=== PATIENT | female | born 1940 | race Caucasian/White ===

== ENCOUNTER 2023-10-27 22:12 | Inpatient (IN) | payer OTHER, SELFPAY ==
[2023-10-27 18:24] VITALS: BP 156/89
--- NOTE | 2023-10-27 18:49 | ED.GENMED ---
History of Present Illness
<Hernando Álvarez DO - Last Filed: 10/27/23 18:51>
General
Chief Complaint: Breathing Problem
Time Seen by Provider: 10/27/23 18:50
Travel History
Have you had any contact with someone who has COVID-19?: No
Do you have any symptoms of coronavirus? Fever > 100 degrees, chills, cough, shortness of breath, sore throat, loss of taste or smell, muscle aches, or headache?: No
<LUIS Donato - Last Filed: 10/27/23 20:51>
General
Source: patient
Exam Limitations: none
History of Present Illness
History of Present Illness:
This is a 82 year old female that comes in with c/o SOB. Son states that before his dad passed he told him that his mom needed to see a doctor as she was SOB. States that at that time it was not really noticeable. States that she has some pelvic
surgery due to fracture and she has been seeing a urologist. State that she was to see them on Sunday but they cancelled her appointment. States that prior to this she had a US and labs. State that the office called them yesterday and said that is
shows some kidney disease and that she had a pleural effusion. States that since he was with her all day yesterday he noticed that she was SOB with walking. Patient states that she does feels SOB. Son states that they have a pulse ox at home and her
HR has been going up and down. States that the highest ws 140 but usually between 100-120. States that her pulse ox was around 96. Denies any fever, chills, chest pain, abd pain, nausea, vomiting, diarrhea, headache, dizziness, urinary burning.
Denies any history of Atrial fib.
Past History
<LUIS Donato - Last Filed: 10/27/23 20:51>
Past History
ED Past Medical History: Cancer (Breast CA) and HTN; Negative Asthma, Hypercholesterolemia or NIDDM
ED Past Surgical History: Gynecological (Lympectomy) and Orthopedic (Pelvic surgery due to fractures)
Social History
Tobacco: Non-smoker
Alcohol: Occasional
Personal:
Living: alone
Review of Systems
<LUIS Donato - Last Filed: 10/27/23 20:51>
Review of Systems
All Other Systems: ROS reviewed and negative except as documented in HPI and ROS
Constitutional: Reports no symptoms; Denies fever or chills
EENT: Reports no symptoms
Respiratory: Reports trouble breathing; Denies cough
ABD/GI: Reports no symptoms; Denies abdominal pain, nausea, vomiting or diarrhea
: Reports no symptoms; Denies dysuria, frequency or urgency
Musculoskeletal: Reports no symptoms
Skin: Reports no symptoms
Neurological: Reports no symptoms; Denies dizzy or headache
Psychiatric: Reports no symptoms
Phy Exam
<LUIS Donato - Last Filed: 10/27/23 20:51>
General Physical Exam
General Presentation: no apparent distress
General age: appears stated age
General Skin: warm and dry
General Habitus: elderly
General Mental: alert
General Hydration: appears well hydrated
ENT Exam
ENT Exam: TM's normal, pharynx normal and neck supple
Eye Exam
Eye Exam: EOMI
Cardiovascular Exam
Cardiovascular Exam: normal peripheral pulses and irregularly irregular
Pulmonary Exam
Pulmonary Exam: no respiratory distress, no rales, chest non tender, no crackles, no rhonchi, no wheezing, no cough and other (Slight Decreased breath sound right base)
Gastrointestinal Exam
Gastrointestinal Exam: normal bowel sounds, non tender, soft, no organomegaly, no pulsatile mass and non distended
Musculoskeletal Exam
Musculoskeletal Exam: full ROM and edema (Bilateral lower legs to knees +1 pitting)
Skin Exam
Skin Exam: normal color, warm/dry, no rash and no petechia
Psychiatric Exam
Psychiatric Exam: normal mood/affect
Scores
<LUIS Donato - Last Filed: 10/27/23 20:51>
[id number] Score for Afib Stroke Risk
Age in Years (65=0, 65-74=1, >/=75=2): > or = 75
Sex (Female=+1): Female
Congestive Heart Failure History (Yes=+1): Yes
Hypertension History (Yes=+1): Yes
Stroke/TIA/Thromboembolism History (Yes=+2): No
Vascular Disease History (Yes=+1): No
Diabetes Mellitus (Yes=+1): No
Score: 5
Anticoagulation Recommendations: Recommend anticoagulation (as validated in nonvalvular fib)
Heart Failure Risk
Heart Failure Risk Score: Yes
History of Stroke or TIA: No
History of intubation for respiratory distress: No
Heart rate on ED arrival >/= 110: Yes
SaO2 <90% on arrival on room air: No
HR >/=110 during 3min walk test (or too ill to perform test): Yes
ECG has acute ischemic changes: No
Urea >/=12mmol/L (BUN 33.6mg/dL): No
Serum CO2>/=35mmol/L: No
Troponin I or T elevated to CO Level (0.4mg/dL): No
NT-proBNP >/=5,000ng/L (5,000pg/ml): No
HF Risk Score: 2
Admission Status: MEDIUM RISK 9.2% Consider observation or discharge to home with homecare & f/u visit to PCP/Food Technician, or SNF for treatment
Course
<Hernando Álvarez DO - Last Filed: 10/27/23 18:51>
Orders/Labs/Results
Orders:
Orders
10/27/23 18:27
ECG [Electrocardiogram (*1)] Urgent
Reason for Study: Tachycardia
EKG- Treatment ONCE
10/27/23 18:49
CR Chest - 2 Views Urgent
Comment:
Reason For Exam: dyspnea
10/27/23 18:50
Urinalysis Reflex To Culture Urgent
Date Specimen was Collected: 10/27/23
Time Specimen was Collected: 18:52
10/27/23 19:19
Complete Blood Count/With Diff Urgent
Comprehensive Metabolic Panel Urgent
Lipase Urgent
NT-proBNP Urgent
PTT Urgent
Prothrombin Time Urgent
Troponin I Urgent
Abnormal Lab Results
10/27/23
19:19
RBC 3.44 L 10^6/uL
(4.20-5.40)
Hgb 11.5 L g/dL
(12.0-16.0)
Hct 32.5 L %
(37.0-47.0)
MCH 33.4 H pg
(27.0-31.0)
Absolute Monos (auto) 0.7 H 10^3/uL
(0.1-0.6)
Monocytes % 13.3 H %
(1.7-9.3)
PT 15.3 H Sec
(11.4-14.6)
Sodium 133 L mmol/L
(135-145)
BUN 24 H mg/dl
(7-17)
Glucose 105 H mg/dl
(70-99)
10/27/23 19:19
10/27/23 19:19
Vital Signs
Initial and Last Documented VS:
Initial Vital Signs
Temp Pulse Resp BP Pulse Ox
98.1 F 116 20 156/89 96
10/27/23 18:24 10/27/23 18:24 10/27/23 18:24 10/27/23 18:24 10/27/23 18:24
Last Documented Vital Signs
Temp Pulse Resp BP Pulse Ox
98.1 F 110 25 156/89 95
10/27/23 18:24 10/27/23 20:17 10/27/23 20:17 10/27/23 18:24 10/27/23 20:17
<LUIS Donato - Last Filed: 10/27/23 20:51>
Orders/Labs/Results
Orders:
Orders
10/27/23 18:27
ECG [Electrocardiogram (*1)] Urgent
Reason for Study: Tachycardia
EKG- Treatment ONCE
10/27/23 18:49
CR Chest - 2 Views Urgent
Comment:
Reason For Exam: dyspnea
10/27/23 18:50
Urinalysis Reflex To Culture Urgent
Date Specimen was Collected: 10/27/23
Time Specimen was Collected: 18:52
10/27/23 19:19
Complete Blood Count/With Diff Urgent
Comprehensive Metabolic Panel Urgent
Lipase Urgent
NT-proBNP Urgent
PTT Urgent
Prothrombin Time Urgent
Troponin I Urgent
Abnormal Lab Results
10/27/23
19:19
RBC 3.44 L 10^6/uL
(4.20-5.40)
Hgb 11.5 L g/dL
(12.0-16.0)
Hct 32.5 L %
(37.0-47.0)
MCH 33.4 H pg
(27.0-31.0)
Absolute Monos (auto) 0.7 H 10^3/uL
(0.1-0.6)
Monocytes % 13.3 H %
(1.7-9.3)
PT 15.3 H Sec
(11.4-14.6)
Sodium 133 L mmol/L
(135-145)
BUN 24 H mg/dl
(7-17)
Glucose 105 H mg/dl
(70-99)
10/27/23 19:19
10/27/23 19:19
H/H slightly low. PT 15.3 with INR 1.23, PTT 29.6, Lipase normal at 165, Sodium slightly low, Glucose nonfasting. Troponin <0.012, Pro-BNP 4560.
Vital Signs
Initial and Last Documented VS:
Initial Vital Signs
Temp Pulse Resp BP Pulse Ox
98.1 F 116 20 156/89 96
10/27/23 18:24 10/27/23 18:24 10/27/23 18:24 10/27/23 18:24 10/27/23 18:24
Last Documented Vital Signs
Temp Pulse Resp BP Pulse Ox
98.1 F 110 25 156/89 95
10/27/23 18:24 10/27/23 20:17 10/27/23 20:17 10/27/23 18:24 10/27/23 20:17
<LUIS Donato - Last Filed: 10/27/23 20:51>
MDM/Problems Addressed
Differential Diagnosis Includes:
New Onset atrial fib, CHF, Pleural effusion
MDM/Problems Addressed:
This is a 82 year old female that comes in with c/o SOB. Son states that this must have started a month ago but was not noticeable. Then patient has testing yesterday and they were called and told that she has some renal disease and a pleural
effusion. States that she has been SOB and her heart rate is going up and down. The highest it has been was 140. Normally it has been between 100-120. Denies any history of atrial fib.
Will get labs, chest X-ray.
Back into see patient and son. Explained that there is a right sided pleural effusion and increased vascular congestion. With this new history of atrial fib it has most likely cause the CHF. Will start on Eliquis and give IV Lasix and admit.
Hospitalist notified.
Chronic conditions affecting care: Cancer
Acute Exacerbation and/or Progression of Chronic Illness:
NA
<LUIS Dnoato - Last Filed: 10/27/23 20:51>
*Radiology
Radiology exam reviewed: preliminary read by ED provider (Chest- Right sided pleural effusion with CHF. )
*Pulse Oximetry
Patient hypoxic: no
*EKG
Interpreted by ED Provider?: Yes
Heart Rate: 96
Rate: normal
Rhythm: a-fib
Trinity: normal axis
QRS Pattern: normal QRS
Ischemia: non-specific ST changes (V4, V5, V6 Checked by Dr. Torres)
*Director Pharmacology Interpretation
Rate: tachycardiac
Heart Rate: 107
Rhythm: a-fib
*Critical Care Note
Total Time (30-74mins, 75-104mins- exclusive of procedures): Not Applicable
ED Attending Note
<Hernando Álvarez DO - Last Filed: 10/27/23 18:51>
-
Portions of this chart may have been created with voice recognition software.� Occasional wrong word or��sound alike� substitutions may have occurred due to the inherent limitations of voice recognition software.
Discharge Plan
Departure
Patient Disposition: Admit
Date of Disposition: 10/27/23
Time of Disposition: 20:48
Admit to: Telemetry
Presentation/result/management discussed w/ accepting MD/DO: Hospitalist
Patient with high blood pressure during this ER visit?: Yes
Condition: Good
Covid-19: Not Applicable
Discharge Problem:
Atrial fibrillation, new onset, Pleural effusion, right, CHF (congestive heart failure)
Referrals:
Jcarlos Velez MD [Family Provider] -
Interventions
Interventions:
*ED COVID-19 Vaccine History Last Done: 10/27/23 18:24
ED- Cardiac Assessment Last Done: 10/27/23 19:24
ED- Pulmonary Assessment Last Done: 10/27/23 19:24
Discharge Date and Time
Print Language: SLOVAK
[2023-10-27 19:44] LABS: % Basophils 0.6 % (0-2); % Eosinophils 4.6 % (0-6); % Immature Granulocytes 0.4 % (0-0.5); % Lymphocytes 23.2 % (20.5-51.1); % Monocytes 13.3 % (1.7-9.3); % Neutrophils 57.9 % (42.2-75.2); Absolute Eosinophils 0.2 10^3/uL (0-0.7); Absolute Lymphocytes 1.2 10^3/uL (1.2-3.4); Absolute Monocytes 0.7 10^3/uL (0.1-0.6); Absolute Neutrophils 2.9 10^3/uL (1.4-6.5); Hematocrit 32.5 % (37.0-47.0); Hemoglobin 11.5 g/dL (12.0-16.0); Mean Corp Hgb Conc. 35.4 g/dL (33.0-37.0); Mean Corpuscular Hgb 33.4 pg (27.0-31.0); Mean Corpuscular Volume 94.5 fL (81.0-99.0); Nucleated Red Blood Cells % 0 %; Platelet Count 242 10^3/uL (130-400); Red Blood Cell Count 3.44 10^6/uL (4.20-5.40); Red Cell Dist. Width 13.6 % (11.5-14.5)
[2023-10-27 19:55] LABS: ALT (SGPT) 30 U/L (0-35); AST (SGOT) 30 U/L (14-36); Albumin 3.7 g/dl (3.5-5.0); Alkaline Phosphatase 99 U/L (38-126); Blood Urea Nitrogen 24 mg/dl (7-17); Carbon Dioxide 23 mmol/L (22-30); Chloride 105 mmol/L (98-107); Glucose 105 mg/dl (70-99); Lipase 165 U/L (23-300); Potassium 4.4 mmol/L (3.5-5.1); Sodium 133 mmol/L (135-145); Total Bilirubin 0.6 mg/dl (0.2-1.3); Total Protein 6.4 g/dl (6.3-8.2); eGFR > 60.00
[2023-10-27 19:58] LABS: INR 1.23; PT 15.3 Sec (11.4-14.6)
[2023-10-27 19:59] LABS: APTT 29.6 Sec (23.4-35.0)
[2023-10-27 20:06] LABS: NT-proBNP 4560 pg/ml; Troponin I < 0.012 ng/ml
[2023-10-27 20:17] VITALS: BP 145/108
[2023-10-27] MEDS: ELIQUIS 5 MG PO (20:48)
[2023-10-27] MEDS: LASIX 40 MG IV (20:49)
[2023-10-27 20:52] LABS: Urine Albumin Trace (Neg - Trace); Urine Bilirubin Negative (Negative); Urine Character Clear (Clear); Urine Color Yellow; Urine Glucose Negative (Negative); Urine Ketone Negative (Negative); Urine Leukocyte 2+ (Negative); Urine Nitrite Negative (Negative); Urine Occult Blood Negative (Negative); Urine Urobilinogen Negative (Neg - 1+)
[2023-10-27 21:00] VITALS: BP 160/108
[2023-10-27 21:01] LABS: Urine Bacteria Moderate (Negative); Urine Red Blood Cell None Seen /HPF (0-2); Urine Squamous Cell 0-2 /LPF (Few); Urine White Cell >100 /HPF (0-5)
--- NOTE | 2023-10-27 21:28 | HPS.HSE ---
Family Physician
-
Family Physician: Jcarlos Velez
Chief Complaint
-
Dyspnea exertion, shortness of breath and lower extremity edema
History of Present Illness
This is an 82-year-old female with past medical history significant for hypertension, dementia, lower urinary tract symptoms, recently status post total hip arthroplasty who presents to the emergency department with shortness of breath and
incidental finding of a right-sided pleural effusion.
According to family members and patient she has been having her urinary symptoms and increasing edema since her orthopedic surgery. More recently due to worsening lower extremity edema she was being evaluated for renal dysfunction with an
ultrasound and incidental finding of right-sided pleural effusion was noted and patient was sent into ED for further evaluation.
Prior to these family reported that symptoms started in terms of shortness of breath about a month ago. She did have dyspnea on exertion especially with walking up a flight of stairs. They stopped taking her weight. The patient also had episodes
of hyponatremia and had been placed on salt tabs. She had never complained of palpitations dizziness or lightheadedness. No prior history of CAD, atrial fibrillation or blood clots. No prior history of thyroid dysfunction. Denies any cough
fevers or chills. Started on atenolol for hypertension and tamsulosin for lower urinary tract symptoms. Social history notable for recent loss of spouse last month.
In the ED she was afebrile, hypertensive to 156/89, pulse of 110, oxygen saturation of 95% on room air. ECG with atrial fibrillation rate of [address]-T wave changes. Initial troponin was negative. BNP was elevated at over 4000. CBC
was unremarkable. Chemistries notable for sodium of 133 with normal BUN and creatinine.
Medical History
Past Medical History
Past Medical History: Reports HTN
Past Surgical History: Reports Orthopedic (Total hip arthroplasty following a fall and hip fracture in june.)
Social History
Tobacco: Non-smoker
Alcohol: None
Drug: None
Personal:
Living: Alone
Employment: Retired
Family History
Family History: Not pertinent
Allergies / Home Medications
Allergies reflects when Allergies were last updated in [email or web address].
Home Medications with original date entered in [email or web address]
Allergy/Medication List:
Allergies
Allergy/AdvReac Type Severity Reaction Status Date / Time
No Known Allergies Allergy Unverified 10/27/23 18:25
If medication reconciliation has not been performed, why?: Dementia
Review of Systems
-
History Source: Patient and Family
Constitutional: Reports No Symptoms
EENT: Reports No Symptoms
Respiratory: Reports Trouble Breathing
Cardiac: Reports Other (lower extremity edema)
Abdomen/GI: Reports No Symptoms
: Reports Frequency
Musculoskeletal: Reports No Symptoms
Skin: Reports No Symptoms
Neurological: Reports No Symptoms
Endocrine: Reports No Symptoms
Hematologic/Lymphatic: Reports No Symptoms
Psych: Reports No Symptoms
Physical Exam
Vital Signs
Vital Signs
Temp Pulse Resp BP Pulse Ox
98.1 F 98 27 160/108 97
10/27/23 18:24 10/27/23 21:15 10/27/23 21:15 10/27/23 21:00 10/27/23 21:15
Physical Exam
General: Conversant
HEENT: NormoCephalic, Anicteric, Moist mucous membranes and PERRLA
Respiratory: Crackles
Cardiac: S1/S2, Irregular Rhythm and Tachycardia
Breast: Deferred by me
GI: Soft, Non Tender, Non Distended and Normal Bowel Sounds
Rectal: Deferred by Provider
Genito-urinary: Deferred by me
Musculoskeletal: No Clubbing, No Cyanosis, Edema, Left Lower Extremity and Edema, Right Lower Extremity
Skin: Warm
Neuro: AO x 3
Hematologic/Lymphatic: No Lymphadenopathy
Psych: Calm
Laboratory Results
-
10/27/23 19:19
10/27/23 19:19
Laboratory Results
PT 15.3 Sec (11.4-14.6) H 10/27/23 19:19
INR 1.23 10/27/23 19:19
APTT 29.6 Sec (23.4-35.0) 10/27/23 19:19
Total Bilirubin 0.6 mg/dl (0.2-1.3) 10/27/23 19:19
AST 30 U/L (14-36) 10/27/23 19:19
ALT 30 U/L (0-35) 10/27/23 19:19
Alkaline Phosphatase 99 U/L (38-126) 10/27/23 19:19
Troponin I < 0.012 ng/ml 10/27/23 19:19
Lipase 165 U/L (23-300) 10/27/23 19:19
Data Reviewed
-
Diagnostic Radiology: Image Personally Visualized and interpreted
Medical Tests (Nuc Med, Echo, EKG etc): Image Personally Visualized and interpreted
Lab Data: Labs Reviewed by me
Old Records: Reviewed
Impression/Plan
-
IMPRESSION:
82 y.o female with history of hip surgery 6 weeks ago, LUTS and recent worsening bilateral edema with 1 month of worsening dyspnea on exertion who was incidentally found to have right sided pleural effusion on kidney u/s and sent to ED for
evaluation where she is clearly in new onset CHF with interstitial edema, effusion and peripheral edema with elevated BNP as well as new atrial fibrillation.
PLAN:
1. CHF - New onset CHF. Patient w/o h/o CAD, CHF or Afib. Known hypertension but recently started on atenolol. Troponin is negative. ECG without ischemia. Suspect non-ischemic cardiomyopathy secondary to uncontrolled afib vs stress induced
cardiomyopathy. However cannot entirely rule out ischemia given age and h/o HTN. She is total body volume overloaded.
- admit to telemetry
- start lasix 40mg iv daily w/ daily weights and i/os
- beta blockade for now with metoprolol succinate 25 mg daily
- stress per cardiology tomorrow to rule out ischemia
- tsh, esr, crp
2. Afib - Rates in 110s.
- lopressor now then metoprolol succinate daily
- requires anticoagulation and no recent falls or bleeding risks. Eliquis 5 bid
3. Hyponatremia - H/O hyponatremia on salt tabs, now volume overloaded. Na 133.
- lasix as above with free water/fluid restriction of 1500 ml
4. Pleural effusion - Suspect secondary to CHF.
- diuresis as above
DVT PPX - treatment anticoagulation for afib
Code status - full code
[2023-10-27 22:00] VITALS: BP 136/104
[2023-10-27] MEDS: LOPRESSOR 2.5 MG IV (22:26)
[2023-10-27 22:55] VITALS: BP 153/104; BMI 20.7
[2023-10-27] MEDS: FLOMAX 0.400000000000000022 MG PO (23:33)
[2023-10-28] VITALS (7 sets, daily range): BP systolic 114–128; BP diastolic 60–98; PULSE 116–128; O2SAT 96; BMI 19.4
--- NOTE | 2023-10-28 07:47 | W.PN.HOSP.TC ---
Today's Communication/Plan
-
See bold
Assessment / Plan
Assessment / Plan
HPI: 2-year-old female with past medical history significant for hypertension, dementia, lower urinary tract symptoms, recently status post total hip arthroplasty who presents to the emergency department with shortness of breath and
incidental finding of a right-sided pleural effusion.
According to family members and patient she has been having her urinary symptoms and increasing edema since her orthopedic surgery. More recently due to worsening lower extremity edema she was being evaluated for renal dysfunction with an
ultrasound and incidental finding of right-sided pleural effusion was noted and patient was sent into ED for further evaluation.
1. CHF - New onset CHF, unknown type
Troponin is negative. ECG without ischemia.
BNP upon admission 4560, chest x-ray shows cardiomegaly and mild to moderate CHF with small bilateral effusions, right greater than left.
Echocardiogram requested, continue Lasix 40 mg IV daily, trend creatinine, trend daily weights
Cardiology following
2. New onset rapid atrial fibrillation
TSH/free T4 normal
Status post IV metoprolol, continue metoprolol succinate 25 mg daily
Started on Eliquis for anticoagulation
Cardiology considering LINETTE guided cardioversion prior to discharge
3. Hyponatremia
Patient has a history of hyponatremia on salt tablets at home
Would hold salt tablets, treat with fluid restriction, IV Lasix as above, trend
4. Small bilateral pleural effusions, right greater than left
IV Lasix as above
5. Hypokalemia
Replete
6. Newly
Patient's 4 months ago, she now lives alone
Provided emotional support
DVT prophylaxis�Eliquis
Full code
Updated son on phone 10/27
Total time spent to see the patient on the floor, examine the patient, review data and lab results, discuss treatment plan with patient, nursing staff around 50 minutes.
Physical Exam
General: Frail, elderly, no acute distress
HEENT: Normocephalic, Atraumatic, EOMI, MMM
Respiratory: Faint bibasilar crackles
Cardiac: Normal S1/S2, tachycardic rate, irregular rhythm
GI: Soft, Nontender, Nondistended, Normal Bowel Sounds
Extremities: No Clubbing, Cyanosis
Bilateral lower extremity edema noted
Neuro: Nonfocal/Grossly Intact
Psych: Calm, Cooperative
Anticipated Discharge: 24 - 48 hours
Subjective/Interval History
-
Date of Service: October 28, 2023
Breathing improved. Denies palp/CP. No fever, no vomiting.
Objective Data
-
Labs:
Laboratory Results
10/27/23 10/28/23
19:19 06:31
WBC 5.0
Hgb 11.5 L
Hct 32.5 L
Plt Count 242
PT 15.3 H
INR 1.23
APTT 29.6
Sodium 133 L Pending
Potassium 4.4 Pending
Chloride 105 Pending
Carbon Dioxide 23 Pending
BUN 24 H Pending
Creatinine 0.9 Pending
Glucose 105 H Pending
Calcium 9.0 Pending
Total Bilirubin 0.6
AST 30
ALT 30
Alkaline Phosphatase 99
Vital Signs:
Vital Signs
Temp Pulse Resp BP Pulse Ox
97.9 F 97 19 128/84 96
10/28/23 07:14 10/28/23 07:14 10/28/23 07:14 10/28/23 07:14 10/28/23 07:14
I&O
10/27/23 10/28/23 10/29/23
06:59 06:59 06:59
Intake Total 480 / 480
Output Total 1300 / 1300
Balance -820 / -820
[2023-10-28 08:04] LABS: TSH Reflex To Free T4 1.29 uIU/ml (0.47-4.68)
[2023-10-28 08:57] LABS: Blood Urea Nitrogen 19 mg/dl (7-17); Calcium 8.9 mg/dl (8.4-10.2); Carbon Dioxide 31 mmol/L (22-30); Chloride 98 mmol/L (98-107); Estimated Creatinine Clearance 44 ml/min; Glucose 90 mg/dl (70-99); Magnesium 1.6 mg/dl (1.6-2.3); Potassium 3.4 mmol/L (3.5-5.1); Sodium 134 mmol/L (135-145); eGFR > 60.00
--- NOTE | 2023-10-28 09:13 | CON.CAR ---
Consultation
Consultation Request
Date/Time Consultation Requested: October 28, 2023
Date/Time Consultation Performed: 02/27/2024
Requesting Provider: Hospitalist
Performing Provider: Candelario
Reason for Consultation: New onset atrial fibrillation
Medical History
-
Chief Complaint: New onset atrial fibrillation
History of Present Illness:
82-year-old female who unfortunately just lost her approximately 3 weeks ago and has noticed increased difficulty with breathing on exertion and heart racing for approximately 5 to 7 days. She lives independently although does not drive but
is able to care for the home, cook meals and live overall independently. She has 5 children who are able to drive her and visit with her through this trying time with the loss of her . Prior to the last week she has no history of heart
racing, dyspnea exertion or cardiac history and has not seen a excel analyst nor remembers any cardiac testing in her lifetime. She presents with new onset atrial fibrillation, right pleural effusion and symptoms and signs of new onset congestive
heart failure. She was on no home medications.
Past Medical History
Past Medical History: Arrhythmias
Social History
Tobacco: Non-Smoker
Alcohol: None
Drug: None
Personal:
Living: Alone
Employment: Not Employed
Family History
Family History: Reviewed & Not Pertinent
Allergies / Home Medications
Allergy/AdvReac Type Severity Reaction Status Date / Time
No Known Allergies Allergy Unverified 10/27/23 18:25
Review of Systems
-
All other systems: Negative unless noted
Respiratory: Trouble Breathing
Cardiac: Palpitations
Physical Exam
Vital Signs
Temp Pulse Resp BP Pulse Ox
97.9 F 97 19 128/84 96
10/28/23 07:14 10/28/23 07:14 10/28/23 07:14 10/28/23 07:14 10/28/23 07:14
Lab Results
10/27/23 19:19
10/28/23 06:31
Troponin I < 0.012 ng/ml 10/27/23 19:19
Yky-Z-Pcoqvhdenip Pept 4560 pg/ml 10/27/23 19:19
Physical Exam
General: Well Developed and Well Nourished
HEENT: Normocephalic and Anicteric
Respiratory: Crackles
Cardiac: S1/S2 and Irregular Rhythm
Breast: Deferred by me
GI: Soft, Non Tender, Non Distended and Flat
Rectal: Deferred by Provider
Genito-urinary: Clear Urine
Musculoskeletal: No Clubbing, No Cyanosis and No Edema
Skin: Warm and Dry
Neuro: Awake, Alert and Oriented
Hematologic/Lymphatic: No Lymphadenopathy
Psych: Calm
Impression / Plan
-
Impression:
New onset atrial fibrillation
Congestive heart failure unspecified and acute
Rapid ventricular response from her atrial fibrillation
Anemia�mild
Recently
Recommendation:
I agree with initiation of oral apixaban for stroke prevention and metoprolol for rate control. I also agree with IV diuresis as she has symptoms and signs of fluid overload although appears mild. We will perform 2D echocardiogram on Sunday to
assess LV function, assess for any significant valvular disease and look at regional wall motion. Depending on symptoms we could offer a LINETTE guided cardioversion prior to discharge or if she feels better with diuresis and rate control and
outpatient evaluation and discussion of rate versus rhythm control. Continue current medicines as you are we will follow on a daily basis.
Data Reviewed
-
EKG: Tracing Personally Visualized and interpreted
Medical Tests (Nuc Med, Echo etc): Image Personally Visualized and interpreted
Labs: Labs Reviewed by me
Old Records: Reviewed
[2023-10-28] MEDS: TOPROL XL 25 MG PO (09:48)
[2023-10-28] MEDS: ELIQUIS 5 MG PO ×2 (09:49→20:55)
[2023-10-28] MEDS: LASIX 40 MG IV (09:49)
--- NOTE | 2023-10-28 10:07 | CM ---
Patient seen at bedside. Patient states that she lives alone, since her 3 months ago. Patient stated that her PCP is Dr. Velez and she uses the [facility] in [place] and does not drive any longer. Patient stated that she has 5
children that all live locally. Patient recommended CM speak with Bill her son in [place]. Patient has no other family members listed as contacts at this time. Patient able to answer all questions, with some delay in remembering names. CM will
call to review discharge plan with patient son, Bill. CM will continue to follow for discharge planning needs.
Plan; home with VN vs SNF pending assessments
--- NOTE | 2023-10-28 14:47 | PTCARENOTE ---
Assumed care of pt from previous nurse. Pt is on tele running afib, uncontrolled with activity. Pt call hyatt is within reach, pt rings sy. will cont to monitor.
[2023-10-28] MEDS: KCL 40 MEQ PO (15:07)
[2023-10-28] MEDS: FLOMAX 0.400000000000000022 MG PO (20:55)
[2023-10-29] VITALS (7 sets, daily range): BP systolic 114–134; BP diastolic 67–86; PULSE 112; O2SAT 98; BMI 20.6
--- NOTE | 2023-10-29 03:25 | PTCARENOTE ---
Pt HR 80-110s throughout the night, frequently going up to 120s but not sustaining, HR going up to 140s with ambulation. House SYNTHETIC SOIL BLOCKS PULPER aware.
[2023-10-29 05:25] LABS: Hematocrit 33.4 % (37.0-47.0); Hemoglobin 11.8 g/dL (12.0-16.0); Mean Corp Hgb Conc. 35.3 g/dL (33.0-37.0); Mean Corpuscular Hgb 32.7 pg (27.0-31.0); Mean Corpuscular Volume 92.5 fL (81.0-99.0); Mean Platelet Volume 9.8 fL (7.4-10.4); Platelet Count 225 10^3/uL (130-400); Red Blood Cell Count 3.61 10^6/uL (4.20-5.40); Red Cell Dist. Width 13.5 % (11.5-14.5); White Blood Cell Count 4.8 10^3/uL (4.8-10.8)
--- NOTE | 2023-10-29 05:39 | PTCARENOTE ---
Pt with confusion throughout the night, currently OX1 but able to easily reorient. Bed alarm maintained. VSS throughout the night. Patient voided X1, attempted again and unable. Bladder scanned for 383. House TAPE DUPLICATOR aware.
[2023-10-29 06:05] LABS: Blood Urea Nitrogen 23 mg/dl (7-17); Calcium 8.8 mg/dl (8.4-10.2); Carbon Dioxide 26 mmol/L (22-30); Chloride 102 mmol/L (98-107); Estimated Creatinine Clearance 44 ml/min; Glucose 91 mg/dl (70-99); Magnesium 1.7 mg/dl (1.6-2.3); Potassium 4.2 mmol/L (3.5-5.1); Sodium 132 mmol/L (135-145); eGFR > 60.00
[2023-10-29] MEDS: ELIQUIS 5 MG PO ×2 (08:56→19:58)
[2023-10-29] MEDS: TOPROL XL 25 MG PO ×2 (08:56→19:58)
[2023-10-29] MEDS: LASIX 40 MG IV (08:56)
[2023-10-29] MEDS: KCL 10 MEQ PO (08:56)
--- NOTE | 2023-10-29 12:14 | W.PN.CARDCBS ---
Addendum entered and electronically signed by Brice Perkins DO 10/29/23 13:48:
I saw and examined the patient.
The Data Sciences Director's note was reviewed and I agree with the note.
Comment:
Plan:
Discussed atrial fibrillation including rate control rhythm control and stroke prophylaxis. She will continue with Eliquis for stroke prophylaxis.
Increase metoprolol for better rate control
We did discuss rhythm control with consideration for LINETTE/cardioversion. Did discuss with the patient and her son Enoch regarding the need to be compliant with taking medications. She may have VN after discharge.
Pending on rate control, if rate control remains difficult, may consider LINETTE cardioversion tomorrow.
Echo pending, pulmonary resolved with preserved LV function.
We did discuss atrial fibrillation may have contributed to heart failure.
Answered all questions that both the patient and her son Enoch had.
Reviewed with nursing.
Original Note:
Today's Communication / Plan
-
Continue IV Diuresis
Increase Toprol to 25 mg BID for rate control
Consider LINETTE/CV if rate remains poorly controlled
Echo pending
Impression / Plan
-
.
PCP:
Registered Midwife: None prior to arrival, initial consult Dr. Palomino
Impression:
Presented 10/28/2023 with SOB and tachycardia
New onset atrial fibrillation w/ RVR, unknown duration
Acute heart failure with unknown ejection fraction
hypokalemia
Recently
Recommendation:
Presented 10/28/2023 with SOB and tachycardia
New onset atrial fibrillation w/ RVR, unknown duration.
-Rate control with Toprol. HRs still suboptimally controlled increase to 25 mg BID
-New to Eliquis 5 mg BID this admission
-T/C LINETTE/CV in next 24-48 hours if unable to get good rate control; keep NPO in am of 10/29
Acute heart failure with unknown ejection fraction
-proBNP 4560 and CXR mild to moderate CHF with small bilateral effusions, right greater than left.
-Agree with continuing IV diuresis w/ Lasix 40 mg
-Monitor electrolytes, K+ 4.2, NA 132
-creat stable 0.9
-Echo pending
Son Don at bedside
I agree with initiation of oral apixaban for stroke prevention and metoprolol for rate control. I also agree with IV diuresis as she has symptoms and signs of fluid overload although appears mild. We will perform 2D echocardiogram on Sunday to
assess LV function, assess for any significant valvular disease and look at regional wall motion. Depending on symptoms we could offer a LINETTE guided cardioversion prior to discharge or if she feels better with diuresis and rate control and
outpatient evaluation and discussion of rate versus rhythm control. Continue current medicines as you are we will follow on a daily basis.
History of Present Illness 10/28/2023:
82-year-old female who unfortunately just lost her approximately 3 weeks ago and has noticed increased difficulty with breathing on exertion and heart racing for approximately 5 to 7 days. She lives independently although does not drive but
is able to care for the home, cook meals and live overall independently. She has 5 children who are able to drive her and visit with her through this trying time with the loss of her . Prior to the last week she has no history of heart
racing, dyspnea exertion or cardiac history and has not seen a automobile sales consultant nor remembers any cardiac testing in her lifetime. She presents with new onset atrial fibrillation, right pleural effusion and symptoms and signs of new onset congestive
heart failure. She was on no home medications.
Progress Note - Registered Midwife
Subjective
Date of Service: October 29, 2023
Seen and examined. Son Don at bedside. Feeling better, denies palpitations, still slightly winded w/ exertion.
Objective
Labs:
10/29/23 05:08
10/29/23 05:08
Labs
Hgb 11.8 g/dL (12.0-16.0) L 10/29/23 05:08
Hct 33.4 % (37.0-47.0) L 10/29/23 05:08
Plt Count 225 10^3/uL (130-400) 10/29/23 05:08
PT 15.3 Sec (11.4-14.6) H 10/27/23 19:19
INR 1.23 10/27/23 19:19
APTT 29.6 Sec (23.4-35.0) 10/27/23 19:19
Sodium 132 mmol/L (135-145) L 10/29/23 05:08
Potassium 4.2 mmol/L (3.5-5.1) 10/29/23 05:08
BUN 23 mg/dl (7-17) H 10/29/23 05:08
Creatinine 0.9 mg/dL (0.6-1.0) 10/29/23 05:08
Glucose 91 mg/dl (70-99) 10/29/23 05:08
Troponins
10/27/23
19:19
Troponin I < 0.012
Vital Signs and I&O:
Vital Signs
Temp Pulse Resp BP Pulse Ox
97.8 F 112 18 114/77 93
10/29/23 11:24 10/29/23 11:24 10/29/23 11:24 10/29/23 11:24 10/29/23 11:24
Vital Signs
Temp Pulse Resp BP Pulse Ox
97.8 F 112 18 114/77 93
10/29/23 11:24 10/29/23 11:24 10/29/23 11:24 10/29/23 11:24 10/29/23 11:24
Intake & Output
10/27/23 10/28/23 10/29/23 10/30/23
06:59 06:59 06:59 06:59
Intake Total 480 / 480 300 / 300
Output Total 1300 / 1300
Balance -820 / -820 300 / 300
Physical Exam
Physical Exam
GEN: No distress, awake, Ox3
HEENT: supple, anicteric, mmm
LUNGS: faint crackles at left base otherside CTA, no wheezes/rales
CV: Irreg,irreg, tachy at times S1/S2, no murmur, rub or gallop
ABD: soft, BS+, NT/ND
EXT: Trace to +1 matheus edema
NEURO: Gross non-focal
SKIN: No rash, warm, dry, pink
--- NOTE | 2023-10-29 13:58 | W.PN.HOSP.TC ---
Today's Communication/Plan
-
see A/P
Assessment / Plan
Assessment / Plan
HPI: 82-year-old female with past medical history significant for hypertension, dementia, lower urinary tract symptoms, recently status post total hip arthroplasty, presented to the emergency department with shortness of breath and
incidental finding of a right-sided pleural effusion.
According to family members and patient, she has been having her urinary symptoms and increasing edema since her orthopedic surgery. More recently due to worsening lower extremity edema she was being evaluated for renal dysfunction with an
ultrasound and incidental finding of right-sided pleural effusion was noted and patient was sent into ED for further evaluation.
A/P:
Acute new onset diastolic CHF
Troponin is negative. ECG without ischemia.
BNP upon admission 4560, chest x-ray shows cardiomegaly and mild to moderate CHF with small bilateral effusions, right greater than left.
Echo noted EF 55-60%. Normal regional wall motion. Diastolic function indeterminate due to atrial fibrillation. Moderate mitral regurgitation.
Continue Lasix 40 mg IV daily, trend creatinine, trend daily weights
Cardiology following
# New onset rapid atrial fibrillation
TSH/free T4 normal
Status post IV metoprolol, continue Toprol, increased to 25 mg BID
Started on Eliquis for anticoagulation
Cardiology considering LINETTE guided cardioversion prior to discharge, tentatively tmr 10/29
# Hyponatremia
Patient has a history of hyponatremia on salt tablets at home
Would hold salt tablets, treat with fluid restriction, IV Lasix as above, trend
# Small bilateral pleural effusions, right greater than left
IV Lasix as above
# Hypokalemia
Repleted and resolved
# Newly
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
Provided emotional support
DVT prophylaxis�Eliquis
Full code
Anticipated Discharge: > 48 hours
Subjective/Interval History
-
Date of Service: October 29, 2023
Objective Data
-
Labs:
Laboratory Results
10/29/23
05:08
WBC 4.8
Hgb 11.8 L
Hct 33.4 L
Plt Count 225
Sodium 132 L
Potassium 4.2
Chloride 102
Carbon Dioxide 26
BUN 23 H
Creatinine 0.9
Glucose 91
Calcium 8.8
Vital Signs:
Vital Signs
Temp Pulse Resp BP Pulse Ox
36.6 C 112 18 114/77 93
10/29/23 11:24 10/29/23 11:24 10/29/23 11:24 10/29/23 11:24 10/29/23 11:24
I&O
10/28/23 10/29/23 10/30/23
06:59 06:59 06:59
Intake Total 480 / 480 300 / 300
Output Total 1300 / 1300
Balance -820 / -820 300 / 300
Review of Systems
-
All other systems: Reviewed and negative
Physical Exam
-
General: Well Developed, Well Nourished, No Apparent Distress, Comfortable and Conversant; Negative Respiratory Distress
HEENT: Normocephalic, Atraumatic, Nose Appears Normal and Ears Appear Normal; Negative Oxygen
Respiratory: Clear to Auscultation and Non Labored Respirations; Negative Accessory Resp Muscle Use
Cardiac: S1/S2, Irregular Rhythm and Tachycardic
GI: Soft, Nontender, Nondistended and Normal Bowel Sounds
Musculoskeletal: Edema, Left Upper Extrem and Edema, Right Lower Extrem
Skin: Warm and Dry
Neuro: Awake, Alert, Oriented and AO x 3
Psych: Calm and Intact Judgement/Insight
Data Reviewed
-
Labs: Labs Reviewed by me
[2023-10-29] MEDS: FLOMAX 0.400000000000000022 MG PO (21:50)
[2023-10-30 03:19] VITALS: BP 111/70
[2023-10-30 06:00] VITALS: BMI 19.2
[2023-10-30 07:35] VITALS: BP 137/84
[2023-10-30 07:55] LABS: Hematocrit 36.5 % (37.0-47.0); Hemoglobin 12.4 g/dL (12.0-16.0); Mean Corpuscular Volume 97.1 fL (81.0-99.0); Platelet Count 225 10^3/uL (130-400); Red Blood Cell Count 3.76 10^6/uL (4.20-5.40); Red Cell Dist. Width 13.5 % (11.5-14.5); White Blood Cell Count 3.6 10^3/uL (4.8-10.8)
[2023-10-30 08:21] LABS: Blood Urea Nitrogen 24 mg/dl (7-17); Calcium 9.2 mg/dl (8.4-10.2); Carbon Dioxide 29 mmol/L (22-30); Chloride 95 mmol/L (98-107); Estimated Creatinine Clearance 43 ml/min; Glucose 92 mg/dl (70-99); Magnesium 1.8 mg/dl (1.6-2.3); Sodium 132 mmol/L (135-145); eGFR > 60.00
[2023-10-30] MEDS: ELIQUIS 5 MG PO (08:44)
[2023-10-30] MEDS: LASIX 40 MG IV (08:44)
[2023-10-30] MEDS: TOPROL XL 25 MG PO ×2 (08:44→20:17)
[2023-10-30] MEDS: KCL 10 MEQ PO (08:44)
[2023-10-30 11:20] VITALS: BP 131/75
--- NOTE | 2023-10-30 11:29 | W.PN.CARDCBS ---
Addendum entered and electronically signed by Be Mendoza MD 10/30/23 14:21:
I saw and examined the patient.
The AVIATION ELECTRICIAN or PA's note was reviewed and I agree with the note.
Comment: General: Well developed, well nourished in NAD.
Neck: Supple, no JVD, HJR, carotids +2 B/L, no bruits bilaterally.
Heart: Non displaced PMI, Irreg, no murmurs, No S3, S4, no rubs.
Lungs: Scattered rhonchi at the bases
Abdomen: Normal bowel sounds, soft, non-tender, non-distended.
Extremities: No clubbing, cyanosis or edema bilaterally.
Neuro: Grossly nonfocal, awake, alert and oriented x3.
She is improving. Will continue IV Lasix. Will plan on LINETTE/cardioversion in a.m. if remains in A-fib. Eliquis decreased to 2.5 mg p.o. twice daily based on dosing criteria. Discussed with patient and son in detail at bedside.
Original Note:
Today's Communication / Plan
-
Continue IV Lasix
For LINETTE cardioversion in a.m.
Continue Toprol
Eliquis dose reduced to 2.5 mg twice daily based on criteria
Will have case management assess cost to patient of SGLT2 inhibitor
Impression / Plan
-
Television Repair Teacher: None prior to arrival, initial consult Dr. Palomino
Impression:
Presented 10/28/2023 with SOB and tachycardia
New onset atrial fibrillation w/ RVR, unknown duration
Acute HFpEF
mod MR by echo 10/29/23
hypokalemia
hyponatremia
Recently
ECHO 10/29/23: EF 55 to 60%, mild concentric LVH, moderate MR, aortic sclerosis, mild TR, PAP 25 to 30 mmHg
Recommendation:
-Presented 10/28/2023 with SOB and tachycardia
-Found to be in new onset atrial fibrillation with rapid ventricular response. Heart rates are improved but remain suboptimal on Toprol 25 mg twice daily
-[id number] score of 4 for age, female, CHF. she does have history of fall with fractured pelvis 05/2023. after discussion with patient and son, was initiated on eliquis 5mg BID. will decrease to 2.5mg BID given age greater than 80 and weight less
than 60 kg
-plan for LINETTE/CV in AM after further diuresis
-continue IV lasix 40mg daily. Cr stable at 0.9
-CHF education
-echo reviewed with patient and son 10/29, results as above
-Could consider addition of SGLT2 inhibitor if affordable to patient, and no history of UTI. With case management assess cost
-discussed with patient and son the importance of medication compliance, especially post CV. her children will work with her to make sure she is compliant with medication. will have CM look into VN for DC.
History of Present Illness 10/28/2023:
82-year-old female who unfortunately just lost her approximately 3 weeks ago and has noticed increased difficulty with breathing on exertion and heart racing for approximately 5 to 7 days. She lives independently although does not drive but
is able to care for the home, cook meals and live overall independently. She has 5 children who are able to drive her and visit with her through this trying time with the loss of her . Prior to the last week she has no history of heart
racing, dyspnea exertion or cardiac history and has not seen a damper worker nor remembers any cardiac testing in her lifetime. She presents with new onset atrial fibrillation, right pleural effusion and symptoms and signs of new onset congestive
heart failure. She was on no home medications.
Progress Note - Television Repair Teacher
Subjective
Date of Service: October 30, 2023
Denies chest pain, shortness of breath, palpitations
Objective
Labs:
10/30/23 07:19
10/30/23 07:19
Labs
Hgb 12.4 g/dL (12.0-16.0) 10/30/23 07:19
Hct 36.5 % (37.0-47.0) L 10/30/23 07:19
Plt Count 225 10^3/uL (130-400) 10/30/23 07:19
PT 15.3 Sec (11.4-14.6) H 10/27/23 19:19
INR 1.23 10/27/23 19:19
APTT 29.6 Sec (23.4-35.0) 10/27/23 19:19
Sodium 132 mmol/L (135-145) L 10/30/23 07:19
Potassium 4.0 mmol/L (3.5-5.1) 10/30/23 07:19
BUN 24 mg/dl (7-17) H 10/30/23 07:19
Creatinine 0.9 mg/dL (0.6-1.0) 10/30/23 07:19
Glucose 92 mg/dl (70-99) 10/30/23 07:19
Troponins
10/27/23
19:19
Troponin I < 0.012
Vital Signs and I&O:
Vital Signs
Temp Pulse Resp BP Pulse Ox
98.1 F 120 18 137/84 100
10/30/23 07:35 10/30/23 07:35 10/30/23 07:35 10/30/23 07:35 10/30/23 08:30
Vital Signs
Temp Pulse Resp BP Pulse Ox
98.1 F 120 18 137/84 100
10/30/23 07:35 10/30/23 07:35 10/30/23 07:35 10/30/23 07:35 10/30/23 08:30
Intake & Output
10/28/23 10/29/23 10/30/23 10/31/23
07:59 07:59 07:59 07:59
Intake Total 480 / 480 300 / 300 600 / 600
Output Total 1300 / 1300
Balance -820 / -820 300 / 300 600 / 600
Physical Exam
Physical Exam
GEN: No distress, awake, alert, oriented x3
HEENT: supple, anicteric, mmm, EOMI
LUNGS: Crackles B/L, decreased BS RLB, no wheezes
CV: Irreg, S1/S2, 1/6 murmur
ABD: soft, BS+, NT/ND
EXT: No cyanosis, clubbing, edema
NEURO: Gross non-focal
SKIN: Warm, pink, dry. No rash
--- NOTE | 2023-10-30 12:09 | W.PN.HOSP.TC ---
Today's Communication/Plan
-
Card to direct LINETTE/DCCV
Assessment / Plan
Assessment / Plan
HPI: 82-year-old female with past medical history significant for hypertension, dementia, lower urinary tract symptoms, recently status post total hip arthroplasty, presented to the emergency department with shortness of breath and
incidental finding of a right-sided pleural effusion.
According to family members and patient, she has been having her urinary symptoms and increasing edema since her orthopedic surgery. More recently due to worsening lower extremity edema she was being evaluated for renal dysfunction with an
ultrasound and incidental finding of right-sided pleural effusion was noted and patient was sent into ED for further evaluation.
A/P:
Acute new onset diastolic CHF
Troponin is negative. ECG without ischemia.
BNP upon admission 4560, chest x-ray shows cardiomegaly and mild to moderate CHF with small bilateral effusions, right greater than left.
Echo noted EF 55-60%. Normal regional wall motion. Diastolic function indeterminate due to atrial fibrillation. Moderate mitral regurgitation.
Continue Lasix 40 mg IV daily, trend creatinine, trend daily weights
Cardiology following
# New onset rapid atrial fibrillation
TSH/free T4 normal
Status post IV metoprolol, continue Toprol, increased to 25 mg BID
Started on Eliquis for anticoagulation
Cardiology considering LINETTE guided cardioversion prior to discharge, planned for 10/30
# Hyponatremia
Patient has a history of hyponatremia on salt tablets at home
Would hold salt tablets, treat with fluid restriction, IV Lasix as above, trend
# Small bilateral pleural effusions, right greater than left
IV Lasix as above
# Hypokalemia
Repleted and resolved
# Newly
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
Provided emotional support
DVT prophylaxis�Eliquis
Full code
Anticipated Discharge: 24 - 48 hours
Subjective/Interval History
-
Date of Service: October 30, 2023
Objective Data
-
Labs:
Laboratory Results
10/30/23
07:19
WBC 3.6 L
Hgb 12.4
Hct 36.5 L
Plt Count 225
Sodium 132 L
Potassium 4.0
Chloride 95 L
Carbon Dioxide 29
BUN 24 H
Creatinine 0.9
Glucose 92
Calcium 9.2
Vital Signs:
Vital Signs
Temp Pulse Resp BP Pulse Ox
36.4 C 90 18 131/75 98
10/30/23 11:20 10/30/23 11:20 10/30/23 11:20 10/30/23 11:20 10/30/23 11:20
I&O
10/29/23 10/30/23 10/31/23
06:59 06:59 06:59
Intake Total 300 / 300 600 / 600
Balance 300 / 300 600 / 600
Review of Systems
-
All other systems: Reviewed and negative
Physical Exam
-
General: Well Developed, Well Nourished, No Apparent Distress, Comfortable and Conversant; Negative Respiratory Distress
HEENT: Normocephalic, Atraumatic, Nose Appears Normal and Ears Appear Normal; Negative Oxygen
Respiratory: Clear to Auscultation and Non Labored Respirations; Negative Accessory Resp Muscle Use
Cardiac: S1/S2, Irregular Rhythm and Tachycardic
GI: Soft, Nontender, Nondistended and Normal Bowel Sounds
Musculoskeletal: Edema, Left Upper Extrem and Edema, Right Lower Extrem
Skin: Warm and Dry
Neuro: Awake, Alert, Oriented and AO x 3
Psych: Calm and Intact Judgement/Insight
Data Reviewed
-
Labs: Labs Reviewed by me
--- NOTE | 2023-10-30 13:04 | CM ---
CM reviewed chart- ADC 1-2 days per chart
VN recommended by therapy
Call to son to review dc planning
VN discussed and offered
Son declined- noted he and his other siblings are able to assist with medical management
Feels pt is at baseline regarding functional status
CM consult for med pricing
Call with [facility] [phone]
Jardiance 10 mg QD $47/30 days retail or $94/90 days [facility] mail order
Update to cardio/TT
Discharge Disposition- home, no needs (declined VN)
[2023-10-30] MEDS: AMPICILLIN 104 MG IV ×2 (13:42→20:16)
[2023-10-30 15:34] VITALS: BP 116/67
[2023-10-30 19:45] VITALS: BP 143/78
[2023-10-30] MEDS: ELIQUIS 2.5 MG PO (20:17)
[2023-10-30] MEDS: FLOMAX 0.400000000000000022 MG PO (20:25)
[2023-10-30 23:55] VITALS: BP 116/61
[2023-10-31] VITALS (8 sets, daily range): BP systolic 100–133; BP diastolic 57–81; BMI 18.8
[2023-10-31] MEDS: AMPICILLIN 104 MG IV ×3 (00:56→13:34)
--- NOTE | 2023-10-31 04:53 | DOWNTIME ---
There was a [employer] International Affairs Vice President Downtime on 10/31/2023 from 0100 to 10/31/2023 at 0439. Downtime documentation of patient's care, including medication administrations, has been reconciled in the electronic record per guidelines. Refer to the
patient's paper chart under the miscellaneous tab to see printed paper medication records and downtime forms.
[2023-10-31] MEDS: ELIQUIS 2.5 MG PO ×2 (07:56→19:40)
[2023-10-31] MEDS: KCL 10 MEQ PO (07:56)
[2023-10-31] MEDS: LASIX IV (07:57)
[2023-10-31] MEDS: TOPROL XL 25 MG PO ×2 (07:57→19:39)
[2023-10-31 08:52] LABS: Hematocrit 37.2 % (37.0-47.0); Hemoglobin 12.7 g/dL (12.0-16.0); Mean Corp Hgb Conc. 34.1 g/dL (33.0-37.0); Mean Corpuscular Hgb 32.6 pg (27.0-31.0); Mean Corpuscular Volume 95.6 fL (81.0-99.0); Platelet Count 235 10^3/uL (130-400); Red Blood Cell Count 3.89 10^6/uL (4.20-5.40); Red Cell Dist. Width 13.5 % (11.5-14.5); White Blood Cell Count 3.7 10^3/uL (4.8-10.8)
[2023-10-31] MEDS: LASIX 40 MG IV (09:44)
[2023-10-31 09:56] LABS: Blood Urea Nitrogen 27 mg/dl (7-17); Calcium 8.8 mg/dl (8.4-10.2); Carbon Dioxide 27 mmol/L (22-30); Chloride 99 mmol/L (98-107); Estimated Creatinine Clearance 42 ml/min; Glucose 93 mg/dl (70-99); Magnesium 1.8 mg/dl (1.6-2.3); Potassium 4.1 mmol/L (3.5-5.1); Sodium 130 mmol/L (135-145); eGFR > 60.00
--- NOTE | 2023-10-31 13:32 | W.PN.HOSP.TC ---
Addendum entered and electronically signed by Effie Lopez MD 11/01/23 14:55:
# Asymptomatic bacteriuria.
Patient's urine culture noted Enterococcus species
She denies to any urinary symptoms, hence no need to treat.
She did receive IV ampicillin for 1 day
Original Note:
Today's Communication/Plan
-
see A/P
Assessment / Plan
Assessment / Plan
HPI: 82-year-old female with past medical history significant for hypertension, dementia, lower urinary tract symptoms, recently status post total hip arthroplasty, presented to the emergency department with shortness of breath and
incidental finding of a right-sided pleural effusion.
According to family members and patient, she has been having her urinary symptoms and increasing edema since her orthopedic surgery. More recently due to worsening lower extremity edema she was being evaluated for renal dysfunction with an
ultrasound and incidental finding of right-sided pleural effusion was noted and patient was sent into ED for further evaluation.
A/P:
Acute new onset diastolic CHF
Troponin is negative. ECG without ischemia.
BNP upon admission 4560, chest x-ray shows cardiomegaly and mild to moderate CHF with small bilateral effusions, right greater than left.
Echo noted EF 55-60%. Normal regional wall motion. Diastolic function indeterminate due to atrial fibrillation. Moderate mitral regurgitation.
Continue Lasix 40 mg IV daily, trend creatinine, trend daily weights
Cardiology following
# New onset rapid atrial fibrillation
TSH/free T4 normal
Status post IV metoprolol, continue Toprol increased to 25 mg BID
Started on Eliquis for anticoagulation
s/p LINETTE/cardioversion 10/30 -> back to NSR
Cardiology on board
# Hyponatremia
Patient has a history of hyponatremia on salt tablets at home
Would hold salt tablets, treat with fluid restriction, IV Lasix as above, trend
# Small bilateral pleural effusions, right greater than left
IV Lasix as above
# Hypokalemia
Repleted and resolved
# Newly
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
Provided emotional support
DVT prophylaxis�Eliquis
Full code
DW son at bedside
Anticipated Discharge: Within 24 hours
Subjective/Interval History
-
Date of Service: October 31, 2023
Objective Data
-
Labs:
Laboratory Results
10/31/23
08:00
WBC 3.7 L
Hgb 12.7
Hct 37.2
Plt Count 235
Sodium 130 L
Potassium 4.1
Chloride 99
Carbon Dioxide 27
BUN 27 H
Creatinine 0.9
Glucose 93
Calcium 8.8
Vital Signs:
Vital Signs
Temp Pulse Resp BP Pulse Ox
36.6 C 68 16 100/63 98
10/31/23 13:08 10/31/23 13:08 10/31/23 13:08 10/31/23 13:08 10/31/23 13:08
I&O
10/30/23 10/31/23 11/01/23
06:59 06:59 06:59
Intake Total 600 / 600 900 / 900
Balance 600 / 600 900 / 900
Review of Systems
-
All other systems: Reviewed and negative
Physical Exam
-
General: Well Developed, Well Nourished, No Apparent Distress, Comfortable and Conversant; Negative Respiratory Distress
HEENT: Normocephalic, Atraumatic, Nose Appears Normal and Ears Appear Normal; Negative Oxygen
Respiratory: Clear to Auscultation and Non Labored Respirations; Negative Accessory Resp Muscle Use
Cardiac: Regular Rhythm and S1/S2
GI: Soft, Nontender, Nondistended and Normal Bowel Sounds
Musculoskeletal: Edema, Left Upper Extrem and Edema, Right Lower Extrem
Skin: Warm and Dry
Neuro: Awake, Alert, Oriented and AO x 3
Psych: Calm and Intact Judgement/Insight
Data Reviewed
-
Labs: Labs Reviewed by me
--- NOTE | 2023-10-31 15:18 | W.PN.CARDCBS ---
Today's Communication / Plan
-
For LINETTE cardioversion later today
Continue Eliquis
Add Jardiance
Consider change to oral Lasix on 10/31
Impression / Plan
-
Clothing Designer: None prior to arrival, initial consult Dr. Palomino
Impression:
Presented 10/28/2023 with SOB and tachycardia
New onset atrial fibrillation w/ RVR, unknown duration
Acute HFpEF
mod MR by echo 10/29/23
hyponatremia
Recently
ECHO 10/29/23: EF 55 to 60%, mild concentric LVH, moderate MR, aortic sclerosis, mild TR, PAP 25 to 30 mmHg
Recommendation:
Remains in atrial fibrillation is scheduled for LINETTE/cardioversion later today
[id number] score of 4 for age, female, CHF. she does have history of fall with fractured pelvis 05/2023. cont eliquis 2.5mg BID given age greater than 80 and weight less than 60 kg
continue IV lasix 40mg daily and consider change to oral Lasix on 10/31
Jardiance is $47 per month and will start this medication
Discussed with son at bedside
History of Present Illness 10/28/2023:
82-year-old female who unfortunately just lost her approximately 3 weeks ago and has noticed increased difficulty with breathing on exertion and heart racing for approximately 5 to 7 days. She lives independently although does not drive but
is able to care for the home, cook meals and live overall independently. She has 5 children who are able to drive her and visit with her through this trying time with the loss of her . Prior to the last week she has no history of heart
racing, dyspnea exertion or cardiac history and has not seen a theater projectionist nor remembers any cardiac testing in her lifetime. She presents with new onset atrial fibrillation, right pleural effusion and symptoms and signs of new onset congestive
heart failure. She was on no home medications.
Progress Note - Clothing Designer
Subjective
Date of Service: October 31, 2023
No complaints.
Objective
Labs:
10/31/23 08:00
10/31/23 08:00
Labs
Hgb 12.7 g/dL (12.0-16.0) 10/31/23 08:00
Hct 37.2 % (37.0-47.0) 10/31/23 08:00
Plt Count 235 10^3/uL (130-400) 10/31/23 08:00
PT 15.3 Sec (11.4-14.6) H 10/27/23 19:19
INR 1.23 10/27/23 19:19
APTT 29.6 Sec (23.4-35.0) 10/27/23 19:19
Sodium 130 mmol/L (135-145) L 10/31/23 08:00
Potassium 4.1 mmol/L (3.5-5.1) 10/31/23 08:00
BUN 27 mg/dl (7-17) H 10/31/23 08:00
Creatinine 0.9 mg/dL (0.6-1.0) 10/31/23 08:00
Glucose 93 mg/dl (70-99) 10/31/23 08:00
Vital Signs and I&O:
Vital Signs
Temp Pulse Resp BP Pulse Ox
97.7 F 86 16 112/61 98
10/31/23 15:10 10/31/23 15:10 10/31/23 15:10 10/31/23 15:10 10/31/23 15:10
Vital Signs
Temp Pulse Resp BP Pulse Ox
97.7 F 86 16 112/61 98
10/31/23 15:10 10/31/23 15:10 10/31/23 15:10 10/31/23 15:10 10/31/23 15:10
Intake & Output
10/29/23 10/30/23 10/31/23 11/01/23
06:59 06:59 06:59 06:59
Intake Total 300 / 300 600 / 600 900 / 900
Balance 300 / 300 600 / 600 900 / 900
Physical Exam
Physical Exam
General: Well developed, well nourished in NAD.
Neck: Supple, no JVD, HJR, carotids +2 B/L, no bruits bilaterally.
Heart: Non displaced PMI, irregular, no murmurs, No S3, S4, no rubs.
Lungs: Clear to auscultation bilaterally, no wheeze, rhonchi, rubs bilaterally,
normal expiratory phase.
Extremities: No clubbing, cyanosis or edema bilaterally.
Neuro: Grossly nonfocal, awake, alert and oriented x3.
[2023-10-31] MEDS: JARDIANCE 10 MG PO (17:46)
--- NOTE | 2023-10-31 19:35 | PTCARENOTE ---
patient was received in bed - awake, alert with some forgetfulness and verbally responsive. patient is able to make her needs known and understands when being spoken too. patient did not have any behavioral/verbal indicators of discomfort or pain.
patient continues to have a good appetite for dinner. patient received her first dose of jardiance 10mg's during this shift without any side effects such as confusion, nausea or a rash. fluids encouraged throughout this nurse's shift. patient
remains in her bed at this time with call hyatt, telephone and television remote within reach
[2023-10-31] MEDS: FLOMAX 0.400000000000000022 MG PO (19:42)
[2023-11-01 03:55] VITALS: BP 123/64
[2023-11-01 06:00] VITALS: BMI 18.8
[2023-11-01 07:55] VITALS: BP 127/72
[2023-11-01 08:23] LABS: Hematocrit 36.7 % (37.0-47.0); Hemoglobin 12.3 g/dL (12.0-16.0); Mean Corp Hgb Conc. 33.5 g/dL (33.0-37.0); Mean Corpuscular Hgb 32.4 pg (27.0-31.0); Mean Corpuscular Volume 96.6 fL (81.0-99.0); Mean Platelet Volume 9.9 fL (7.4-10.4); Platelet Count 214 10^3/uL (130-400); Red Cell Dist. Width 13.5 % (11.5-14.5); White Blood Cell Count 3.5 10^3/uL (4.8-10.8)
--- NOTE | 2023-11-01 09:25 | W.PN.HOSP.TC ---
Addendum entered and electronically signed by Effie Lopez MD 11/01/23 15:00:
total DC time 35 min
updated son on the phone
Original Note:
Today's Communication/Plan
-
consider switching IV to PO Lasix
pending cardiac clearance for DC
Assessment / Plan
Assessment / Plan
HPI: 82-year-old female with past medical history significant for hypertension, dementia, lower urinary tract symptoms, recently status post total hip arthroplasty, presented to the emergency department with shortness of breath and
incidental finding of a right-sided pleural effusion.
According to family members and patient, she has been having her urinary symptoms and increasing edema since her orthopedic surgery. More recently due to worsening lower extremity edema she was being evaluated for renal dysfunction with an
ultrasound and incidental finding of right-sided pleural effusion was noted and patient was sent into ED for further evaluation.
A/P:
Acute new onset diastolic CHF
Troponin is negative. ECG without ischemia.
BNP upon admission 4560, chest x-ray shows cardiomegaly and mild to moderate CHF with small bilateral effusions, right greater than left.
Echo noted EF 55-60%. Normal regional wall motion. Diastolic function indeterminate due to atrial fibrillation. Moderate mitral regurgitation.
Continue Lasix 40 mg IV daily, trend creatinine, trend daily weights
Cardiology following
# New onset rapid atrial fibrillation
TSH/free T4 normal
Status post IV metoprolol, continue Toprol increased to 25 mg BID
Started Eliquis for anticoagulation
s/p LINETTE/cardioversion 10/30 -> back to NSR
Cardiology on board
# Hyponatremia
Patient has a history of hyponatremia on salt tablets at home
Would hold salt tablets, treat with fluid restriction, IV Lasix as above, trend
# Small bilateral pleural effusions, right greater than left
Lasix as above
# Hypokalemia
Repleted and resolved
# Newly
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
Provided emotional support
DVT prophylaxis�Eliquis
Full code
Anticipated Discharge: Today
Subjective/Interval History
-
Date of Service: November 01, 2023
Objective Data
-
Labs:
Laboratory Results
11/01/23
07:46
WBC 3.5 L
Hgb 12.3
Hct 36.7 L
Plt Count 214
Sodium Pending
Potassium Pending
Chloride Pending
Carbon Dioxide Pending
BUN Pending
Creatinine Pending
Glucose Pending
Calcium Pending
Vital Signs:
Vital Signs
Temp Pulse Resp BP Pulse Ox
36.7 C 70 18 127/72 95
11/01/23 07:55 11/01/23 07:55 11/01/23 07:55 11/01/23 07:55 11/01/23 07:55
I&O
10/31/23 11/01/23 11/02/23
06:59 06:59 06:59
Intake Total 900 / 900 900 / 900
Balance 900 / 900 900 / 900
Review of Systems
-
All other systems: Reviewed and negative
Physical Exam
-
General: Well Developed, Well Nourished, No Apparent Distress, Comfortable and Conversant; Negative Respiratory Distress
HEENT: Normocephalic, Atraumatic, Nose Appears Normal and Ears Appear Normal; Negative Oxygen
Respiratory: Clear to Auscultation and Non Labored Respirations; Negative Accessory Resp Muscle Use
Cardiac: Regular Rhythm and S1/S2
GI: Soft, Nontender, Nondistended and Normal Bowel Sounds
Musculoskeletal: Edema, Left Upper Extrem and Edema, Right Lower Extrem
Skin: Warm and Dry
Neuro: Awake, Alert, Oriented and AO x 3
Psych: Calm and Intact Judgement/Insight
Data Reviewed
-
Labs: Labs Reviewed by me
[2023-11-01 09:47] LABS: Blood Urea Nitrogen 37 mg/dl (7-17); Calcium 8.9 mg/dl (8.4-10.2); Carbon Dioxide 25 mmol/L (22-30); Chloride 97 mmol/L (98-107); Estimated Creatinine Clearance 38 ml/min; Glucose 96 mg/dl (70-99); Potassium 4.2 mmol/L (3.5-5.1); Sodium 131 mmol/L (135-145); eGFR 55.55
[2023-11-01] MEDS: KCL 10 MEQ PO (10:48)
[2023-11-01] MEDS: FLUSH (NSS) 2 FLUSH IV (10:48)
[2023-11-01] MEDS: LASIX IV ×2 (10:48→12:08)
[2023-11-01] MEDS: JARDIANCE 10 MG PO (10:48)
[2023-11-01] MEDS: TOPROL XL 25 MG PO (10:48)
[2023-11-01] MEDS: ELIQUIS 2.5 MG PO (10:49)
--- NOTE | 2023-11-01 10:59 | W.PN.CARDCBS ---
Addendum entered and electronically signed by Brice Perkins DO 11/01/23 15:32:
I saw and examined the patient.
The Save All Operator's note was reviewed and I agree with the note.
Comment:
Plan:
She remains in sinus rhythm post cardioversion. Continue Eliquis. Continue Toprol.
Compliance has been discussed and she is having family help with medications
Would add amiodarone 200 mg daily for rhythm control. Her left atrial size was enlarged and she has considerable risk of recurrent atrial fibrillation.
Encouraged VN.
She appears euvolemic.
Outpatient follow-up arranged.
Reviewed with nursing.
Original Note:
Today's Communication / Plan
-
toprol 25mg BID
eliquis 2.5mg BID
jardiance 10mg daily
lasix 20mg daily
BMP in 1 week
OP cardiac follow up arranged
VN
Impression / Plan
-
Machine Operations Supervisor: None prior to arrival, initial consult Dr. Palomino
Impression:
Presented 10/28/2023 with SOB and tachycardia
New onset atrial fibrillation w/ RVR, unknown duration
Acute HFpEF
mod MR by echo 10/29/23
hyponatremia
Recently 3 months ago
ECHO 10/29/23: EF 55 to 60%, mild concentric LVH, moderate MR, aortic sclerosis, mild TR, PAP 25 to 30 mmHg
Recommendation:
-s/p successful LINETTE/CV 10/30
-remains in SR upon review of tele overnight
-continue toprol 25mg BID
-continue eliquis 2.5mg BID
-if would recur with afib, would consider for amiodarone
-will plan to transition to po lasix. was not on diuretic prior to admission. would plan to place on po lasix 20mg daily
-BMP in 1 week
-jardiance also started this admission
-trop negative x1
-patient would like VN upon DC. will have CM arrange. she lives alone and her 5 children will assist her
-concern for forgetfulness. discussed importance of med compliance
-OP cardiac follow up arranged
-ok for DC to home today from cardiac standpoint
-d/w nursing
History of Present Illness 10/28/2023:
82-year-old female who unfortunately just lost her approximately 3 weeks ago and has noticed increased difficulty with breathing on exertion and heart racing for approximately 5 to 7 days. She lives independently although does not drive but
is able to care for the home, cook meals and live overall independently. She has 5 children who are able to drive her and visit with her through this trying time with the loss of her . Prior to the last week she has no history of heart
racing, dyspnea exertion or cardiac history and has not seen a television host nor remembers any cardiac testing in her lifetime. She presents with new onset atrial fibrillation, right pleural effusion and symptoms and signs of new onset congestive
heart failure. She was on no home medications.
Progress Note - Machine Operations Supervisor
Subjective
Date of Service: November 01, 2023
denies CP, SOB, palpitations. eager for DC
Objective
Labs:
11/01/23 07:46
11/01/23 07:46
Labs
Hgb 12.3 g/dL (12.0-16.0) 11/01/23 07:46
Hct 36.7 % (37.0-47.0) L 11/01/23 07:46
Plt Count 214 10^3/uL (130-400) 11/01/23 07:46
PT 15.3 Sec (11.4-14.6) H 10/27/23 19:19
INR 1.23 10/27/23 19:19
APTT 29.6 Sec (23.4-35.0) 10/27/23 19:19
Sodium 131 mmol/L (135-145) L 11/01/23 07:46
Potassium 4.2 mmol/L (3.5-5.1) 11/01/23 07:46
BUN 37 mg/dl (7-17) H 11/01/23 07:46
Creatinine 1.0 mg/dL (0.6-1.0) 11/01/23 07:46
Glucose 96 mg/dl (70-99) 11/01/23 07:46
Vital Signs and I&O:
Vital Signs
Temp Pulse Resp BP Pulse Ox
98.0 F 70 18 127/72 95
11/01/23 07:55 11/01/23 07:55 11/01/23 07:55 11/01/23 07:55 11/01/23 07:55
Vital Signs
Temp Pulse Resp BP Pulse Ox
98.0 F 70 18 127/72 95
11/01/23 07:55 11/01/23 07:55 11/01/23 07:55 11/01/23 07:55 11/01/23 07:55
Intake & Output
10/30/23 10/31/23 11/01/23 11/02/23
07:59 07:59 07:59 07:59
Intake Total 600 / 600 900 / 900 900 / 900
Balance 600 / 600 900 / 900 900 / 900
Physical Exam
Physical Exam
GEN: No distress, awake, alert, oriented x3. frail
HEENT: supple, anicteric, mmm, eomi
LUNGS: CTA B/L, no wheezes/rales
CV: Reg, S1/S2, 1/6 murmur
ABD: soft, BS+, NT/ND
EXT: No cyanosis, clubbing. trace edema of B/L LE
NEURO: Gross non-focal
SKIN: Warm, pink, dry. No rash
[2023-11-01 11:55] VITALS: BP 117/65
[2023-11-01] MEDS: PACERONE 200 MG PO (12:24)
[2023-11-01] MEDS: LASIX 20 MG PO (12:24)
--- NOTE | 2023-11-01 14:49 | W.DCSUMMARY ---
Discharge Summary
Discharge Data
Date of Admission: 10/27/23
Date of Discharge: 11/01/23
-
Pending Results: No
Hospital Course
Principal Diagnosis:
Acute new onset diastolic heart failure
New onset rapid atrial fibrillation
Chronic Diagnoses:�
Small bilateral pleural effusions, right greater than left
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
Chronic Hyponatremia
Hypertension
Mild dementia
Consultations:�
Cardiology
Procedures:�
Successful LINETTE/cardioversion 10/30, converted patient back to NSR
Clinical course:�
This is a 82-year-old female with past medical history as stated above, who presented with shortness of breath and incidental finding of a right-sided pleural effusion.
Problem 1:
Acute new onset diastolic CHF.
Her Echo noted EF 55-60%. Normal regional wall motion. Diastolic function indeterminate due to atrial fibrillation. Moderate mitral regurgitation.
She was treated with IV Lasix 40 mg IV daily, and she can continue with Lasix 20 mg p.o. after discharge.
Problem 2:
New onset rapid atrial fibrillation.
Her TSH/free T4 were WNL.
She was started with Toprol and was discharged at 25 mg twice daily.
She was also started with Eliquis for anticoagulation.
She underwent LINETTE/cardioversion on 10/31/2023, which converted her back to her normal sinus rhythm. She can follow-up with cardiology outpatient.
As for the rest of her medical problems, they were stable during her hospital stay.
Discharge Plan
-
Patient Disposition: Home with Home Care
Discharge Diagnosis/Procedures: Acute new onset diastolic heart failure; New onset rapid atrial fibrillation status post successful cardioversion
Condition: Fair
Diet: As tolerated and Restrict fluids to 48 oz
Activity: As tolerated
Driving Restrictions: No driving for 24 hours
Blood Work: BMP in 1 week
Other Services: VN
Specialty Instructions: Weigh Daily- Call MD for wt gain/loss 3 lbs overnight/5 lbs in 1 week
Instructions: *[facility] Heart Failure Instructions
Referrals:
Jcarlos Velez MD [Family Provider] - in less than 1 week
Brice Perkins DO [Active] - 11/07/23 11:20 am (You have a cardiology follow-up appointment at the [place] office. Please call with questions)
Additional Discharge Medication Instructions: Take toprol 25mg twice daily.
Take Eliquis 2.5mg twice daily.
Take jardiance 10mg daily
Take lasix 20mg daily.
Take amiodarone 200mg daily.
Prescriptions:
New
Eliquis 2.5 mg Tablet
2.5 mg PO BID Qty: 60 0RF
Jardiance 10 mg Tablet
10 mg PO DAILY Qty: 30 0RF
furosemide 20 mg Tablet
20 mg PO DAILY Qty: 30 0RF
metoprolol succinate 25 mg Tablet Extended Release 24 Hr
25 mg PO BID Qty: 60 0RF
amiodarone [Pacerone] 200 mg Tablet
200 mg PO DAILY Qty: 30 5RF
Discharge Orders:
Discharge Patient (As Directed); Ordered 11/01/23
Ordered By: Effei Lopez
Discharge Date and Time
Print Language: LUXEMBOURGISH
--- NOTE | 2023-11-01 15:22 | VNURNOTE ---
Home Health Liaison met with patient and son Jn at 1400 to discuss [facility] nurse/therapy, visits, schedule and homebound status. Patient is agreeable and understands that visits at home will be 2-3 x per week to assess and teach medical management.
Patient has a scale and is able to log a daily weight.
[facility] brochure provided with contact information. Patient is aware that [facility] will contact her for start of care in 1-2 days after discharge from .
[facility] referral completed in [facility].
--- NOTE | 2023-11-01 16:46 | CM ---
met with patient and granddaughter at bedside,patient very tearful about recent loss of her .iv lasix changed to po.patient stable for dc home with [facility].patient with memory issues and may go to [place]/memory care per family.contacted [facility] for [facility].family to transport home.patiet signed medicare letter.
== END 2023-11-01 15:15 | disposition home health service (06) | DRG 308 ==
LOC: 4 EAST ACU 22:12
PROVIDERS: Family Medicine; Internal Medicine; ADMITTING PHYSICIAN Internal Medicine; ATTENDING PHYSICIAN Internal Medicine; CONSULT PHYSICIAN Internal Medicine Cardiovascular Disease; EMERGENCY PHYSICIAN Student in an Organized Health Care Education/Training Program; FAMILY PHYSICIAN Family Medicine
PROC: 5A2204Z Restoration of Cardiac Rhythm, Single (ICD-10-PCS; 2023-10-31)
PROC: B24BZZ4 Ultrasonography of Heart with Aorta, Transesophageal (ICD-10-PCS; 2023-10-31)
DX: I48.91 Unspecified atrial fibrillation (principal); I50.31 Acute diastolic (congestive) heart failure; E87.1 Hypo-osmolality and hyponatremia; F03.A0 Unspecified dementia, mild, without behavioral disturbance, psychotic disturbance, mood disturbance, and anxiety; I11.0 Hypertensive heart disease with heart failure; E87.6 Hypokalemia; Z63.4 Disappearance and death of family member; I34.0 Nonrheumatic mitral (valve) insufficiency
CPT/HCPCS: 71046; 80048; 80053; 81003; 81015; 83690; 83735; 83880; 84443; 84484; 85025; 85027; 85610; 85730; 87077; 87086; 87186; 92960; 93005; 93306; 93312; 93320; 93325; 96374; 97162; 97530; 99285

== ENCOUNTER 2024-10-12 11:44 | Emergency (ER) | payer OTHER, SELFPAY ==
[2024-10-12 11:47] VITALS: BP 139/76
[2024-10-12 12:42] LABS: % Basophils 0.3 % (0-2); % Eosinophils 0.4 % (0-6); % Immature Granulocytes 0.6 % (0-0.5); % Lymphocytes 10.1 % (20.5-51.1); % Monocytes 12.2 % (1.7-9.3); % Neutrophils 76.4 % (42.2-75.2); Absolute Lymphocytes 0.7 10^3/uL (1.2-3.4); Absolute Monocytes 0.8 10^3/uL (0.1-0.6); Absolute Neutrophils 5.1 10^3/uL (1.4-6.5); Hematocrit 35.5 % (37.0-47.0); Hemoglobin 12.3 g/dL (12.0-16.0); Mean Corp Hgb Conc. 34.6 g/dL (33.0-37.0); Mean Corpuscular Hgb 35.1 pg (27.0-31.0); Mean Corpuscular Volume 101.4 fL (81.0-99.0); Nucleated Red Blood Cells % 0 %; Platelet Count 255 10^3/uL (130-400); Red Cell Dist. Width 13.2 % (11.5-14.5); White Blood Cell Count 6.7 10^3/uL (4.8-10.8)
[2024-10-12 12:55] LABS: ALT (SGPT) 29 U/L (0-35); AST (SGOT) 36 U/L (14-36); Albumin 4.1 g/dl (3.5-5.0); Alkaline Phosphatase 65 U/L (38-126); Blood Urea Nitrogen 35 mg/dl (7-17); Calcium 9.1 mg/dl (8.4-10.2); Carbon Dioxide 24 mmol/L (22-30); Chloride 104 mmol/L (98-107); Glucose 99 mg/dl (70-99); Potassium 4.4 mmol/L (3.5-5.1); Sodium 136 mmol/L (135-145); Total Protein 6.7 g/dl (6.3-8.2); eGFR 49.24
--- NOTE | 2024-10-12 14:20 | ED.GENMED ---
History of Present Illness
General
Chief Complaint: Musculo-Skeletal Complaint
Source: patient and family (daughter at bedside)
Exam Limitations: dementia
Time Seen by Provider: 10/12/24 12:09
Nursing documentation reviewed up to this point in time: agreed with
History of Present Illness
History of Present Illness:
83 yo female with a fib on Eliquis, HTN, lives alone, presents for right lower rib pain since fall 3 days ago at home. Pt states she was standing in her dining room and her legs gave out. She states she fell this morning, daughter tells her no, it
was 3 days ago. Pt seems a little confused at times.
Daughter states pt is not drinking enough, did not urinate for a whole day yesterday.
Pt also fell 3 weeks ago when her knees 'gave out.' Daughter at bedside expressing concern for pt safety at home. Requesting Case Management to discuss options.
Pt denies headache, neck or back pain. Denies CP, SOB. Denies n/v/d/c.
Past History
Past History
ED Past Medical History: Cancer (Breast CA) and HTN; Negative Asthma, Hypercholesterolemia or NIDDM
ED Past Surgical History: Gynecological (Lympectomy) and Orthopedic (Pelvic surgery due to fractures)
Social History
Tobacco: Non-smoker
Alcohol: Occasional
Personal:
Living: alone
Review of Systems
Review of Systems
Allergies reviewed?: Yes
All Other Systems: ROS reviewed and negative except as documented in HPI and ROS
Constitutional: Denies fever
Respiratory: Denies trouble breathing
Cardiac: Denies chest pain
ABD/GI: Denies abdominal pain, nausea, vomiting or diarrhea
: Denies dysuria, frequency, difficulty voiding or urgency
Musculoskeletal: Reports other (chronic pain both knees, knees giving out); Denies edema, neck pain or back pain
Skin: Reports other (bruising right lower leg)
Neurological: Denies dizzy or headache
Phy Exam
Physical Exam
Physical Exam:
GENERAL: No acute distress. A&Ox3.
CONSTITUTIONAL: Afebrile.
EYES: clear, conjunctivae normal
ENMT: moist mucus membranes, Pharynx nl
RESPIRATORY: Regular respirations, nonlabored, lungs clear.
CARDIOVASCULAR: Regular rate and rhythm, no murmurs, no rubs.
GI: Soft, rotund, nontender, normal BS
MUSCULOSKELETAL: Tender to palpate bilateral ribs right > left, no swelling or discoloration of chest wall or abdomen. No edema. Well perfused.
SKIN: Warm, dry, pink
PSYCH: Normal mood and affect. Well kept, interactive and appropriate. Seems a little confused at times as to tiing of events
NEUROLOGIC: Awake, alert and oriented. No focal neurological deficits
Course
Orders/Labs/Results
Orders:
Orders
10/12/24 12:28
CT Chest/abd/pel W Iv Cont Urgent
Comment:
Reason For Exam: On Eliquis, fall 3 days ago, R rib and RUQ pain
10/12/24 12:34
Complete Blood Count/With Diff Urgent
Comprehensive Metabolic Panel Urgent
10/12/24 14:14
Case Management Consult ONCE
Case Management Consult: Discharge Planning
Requested By:: OTHER
Comment: Pt lives alone, more frequent falls, more confused. Daughter at bedside would like to speak
about higher level of care.
10/12/24 14:21
CT Head W/o Iv Contrast Urgent
Comment:
Reason For Exam: fall on Eliquis, confused at times.
10/12/24 14:29
0.9% Sodium Chloride 1000 ml [Nss] 1,000 ml IV BOLUS
10/12/24 15:09
CT Cervical Spine W/o Iv Contr Urgent
Comment:
Reason For Exam: unwitnessed fall, on Eliquis, elderly
10/12/24 15:38
Urinalysis Reflex To Culture Urgent
Date Specimen was Collected: 10/12/24
Time Specimen was Collected: 15:37
Urine Microscopic Reflex Cult Urgent
Abnormal Lab Results
10/12/24 10/12/24
12:34 15:38
RBC 3.50 L 10^6/uL
(4.20-5.40)
Hct 35.5 L %
(37.0-47.0)
MCV 101.4 H fL
(81.0-99.0)
MCH 35.1 H pg
(27.0-31.0)
Absolute Lymphs (auto) 0.7 L 10^3/uL
(1.2-3.4)
Absolute Monos (auto) 0.8 H 10^3/uL
(0.1-0.6)
Immature Gran % 0.6 H %
(0-0.5)
Neutrophils % 76.4 H %
(42.2-75.2)
Lymphocytes % 10.1 L %
(20.5-51.1)
Monocytes % 12.2 H %
(1.7-9.3)
BUN 35 H mg/dl
(7-17)
Creatinine 1.1 H mg/dL
(0.6-1.0)
Urine Ketones 1+ A
(Negative)
Urine Glucose 4+ A
(Negative)
Urine Albumin (Reflex) 1+ A
(Neg - Trace)
10/12/24 12:34
10/12/24 12:34
Vital Signs
Initial and Last Documented VS:
Initial Vital Signs
Temp Pulse Resp BP Pulse Ox
98.3 F 83 16 139/76 98
10/12/24 11:47 10/12/24 11:47 10/12/24 11:47 10/12/24 11:47 10/12/24 11:47
Last Documented Vital Signs
Temp Pulse Resp BP Pulse Ox
98.3 F 87 16 181/74 98
10/12/24 11:47 10/12/24 12:15 10/12/24 11:47 10/12/24 16:00 10/12/24 15:33
MDM/Problems Addressed
Differential Diagnosis Includes:
Intra-abdominal bleed, fracture rib
MDM/Problems Addressed:
83 yo female with a fib on Eliquis, HTN, lives alone, presents for right lower rib pain since fall 3 days ago at home. Pt states she was standing in her dining room and her legs gave out. She states she fell this morning, daughter tells her no, it
was 3 days ago. Pt seems a little confused at times.
Daughter states pt is not drinking enough, did not urinate for a whole day yesterday.
Pt also fell 3 weeks ago when her knees 'gave out.' Daughter at bedside expressing concern for pt safety at home. Requesting Case Management to discuss options.
Pt denies headache, neck or back pain. Denies CP, SOB. Denies n/v/d/c.
1:00 PM:
CBC with no clinically significant abnormality
CMP with no clinically significant abnormality other than a BUN of 35, IV fluids ordered for dehydration
2:[address] chest abdomen pelvis radiology report read: IMPRESSION: Acute right sixth through ninth rib fractures. Associated small right pleural effusion. No pneumothorax.
Old left superior and inferior pubic ramus bone fractures. Postsurgical change.
Small simple left renal cyst. Too small to catheterize hypodense right renal lesion likely benign cysts.
Moderate fecal material throughout the colon.
Mild cardiomegaly
Pt and daughter notified of results. Daughter states pt has no home care tomorrow and no one to care for pt at home.
Elderly pt with falls, bilateral knee weakness and pain, multiple rib fractures, lives alone
3:45 p.m.
Pt straight cathed for U/A: Had 800 mls in bladder
U/A pending
CT scan head and neck pending
Plan: Admit: Fall, Multiple rib fractures, Pain management, Acute urine retention, Case Management in and spoke with daughter, gave her some referrals.
Discussed case with Dr. Montgomery, Hospitalist who requests transfer to trauma unit
Daughter and pt want to go to [facility].
U/A neg for infection
4:10 p.m.
Spoke with [facility] trauma surgeon Parker Sommer who is willing to accept the patient ED to ED transfer
Chronic conditions affecting care: Arrhythmia (afib on Eliquis)
*Critical Care Note
Total Time (30-74mins, 75-104mins- exclusive of procedures): Not Applicable
ED Attending Note
-
Portions of this chart may have been created with voice recognition software.� Occasional wrong word or��sound alike� substitutions may have occurred due to the inherent limitations of voice recognition software.
Discharge Plan
Departure
Patient Disposition: Acute Care Hospital
Date of Disposition: 10/12/24
Time of Disposition: 16:12
Condition: Fair
Discharge Problem:
Multiple fractures of ribs, Fall from slip, trip, or stumble, Acute retention of urine
Prescriptions:
No Action
Eliquis 2.5 mg Tablet
2.5 mg PO BID Qty: 60 0RF
Jardiance 10 mg Tablet
10 mg PO DAILY Qty: 30 0RF
furosemide 20 mg Tablet
20 mg PO DAILY Qty: 30 0RF
metoprolol succinate 25 mg Tablet Extended Release 24 Hr
25 mg PO BID Qty: 60 0RF
amiodarone [Pacerone] 200 mg Tablet
200 mg PO DAILY Qty: 30 5RF
Referrals:
NONE,* [Family Provider] -
Hospital Transfer
Other hospital: [facility]
I certify that the patient requires transfer: Yes
Discussed case with accepting physician: Parker Sommer
Reason for transfer: higher level of care and specialties available
Interventions
Interventions:
*Risk Screen - Suicide Last Done: 10/12/24 11:47
*General Assessment Last Done: 10/12/24 12:16
*Neglect/Abuse Screening Last Done: 10/12/24 11:47
*ED- Fall Risk Assessment Last Done: 10/12/24 12:16
*ED COVID-19 Vaccine History Last Done: 10/12/24 12:16
*Nursing Disposition Last Done: 10/12/24 18:27
ED-Musculoskeletal Assessment Last Done: 10/12/24 12:08
Discharge Date and Time
Discharge Date/Time: 10/12/24 18:28
Print Language: HUNGARIAN
[2024-10-12 14:23] VITALS: BP 185/77
[2024-10-12] MEDS: NSS 1000 IV (14:41)
[2024-10-12 15:00] VITALS: BP 177/75
[2024-10-12 15:46] LABS: Urine Albumin 1+ (Neg - Trace); Urine Bilirubin Negative (Negative); Urine Character Clear (Clear); Urine Color Yellow; Urine Glucose 4+ (Negative); Urine Ketone 1+ (Negative); Urine Leukocyte Negative (Negative); Urine Nitrite Negative (Negative); Urine Occult Blood Negative (Negative); Urine Specific Gravity 1.015 (<1.030); Urine Urobilinogen Negative (Neg - 1+)
[2024-10-12 15:54] LABS: Urine Red Blood Cell 0-2 /HPF (0-2); Urine Squamous Cell 0-2 /LPF (Few); Urine White Cell 0-2 /HPF (0-5)
[2024-10-12 16:00] VITALS: BP 181/74
--- NOTE | 2024-10-12 16:23 | CM ---
ED CM consulted for LTC and potential placement issues
Bedside meeting with pt and [facility]ielr/[place]
Assisted living, memory care and private duty list provided as well as [facility]
CM later alerted pt to be transferred to a trauma center
== END 2024-10-12 18:28 | disposition short-term general hospital (02) ==
LOC: EMR 11:44
PROVIDERS: Registered Nurse; EMERGENCY PHYSICIAN Emergency Medicine
DX: S22.41XA Multiple fractures of ribs, right side, initial encounter for closed fracture (principal); W01.0XXA Fall on same level from slipping, tripping and stumbling without subsequent striking against object, initial encounter; R33.9 Retention of urine, unspecified; E86.0 Dehydration; F03.90 Unspecified dementia, unspecified severity, without behavioral disturbance, psychotic disturbance, mood disturbance, and anxiety; I10 Essential (primary) hypertension; I48.91 Unspecified atrial fibrillation; Z79.01 Long term (current) use of anticoagulants; N28.1 Cyst of kidney, acquired; Z60.2 Problems related to living alone; Z85.3 Personal history of malignant neoplasm of breast
CPT/HCPCS: 96360; 99285; 70450; 71260; 72125; 74177; 80053; 81003; 81015; 85025; Q9967

== ENCOUNTER → 2024-10-29 09:17 | Outpatient (REF) | payer OTHER, SELFPAY | LOC: HWRCS 09:17 | PROVIDERS: ATTENDING PHYSICIAN Nuclear Medicine Nuclear Cardiology | DX: I48.0 Paroxysmal atrial fibrillation (principal); I34.0 Nonrheumatic mitral (valve) insufficiency | CPT/HCPCS: 93306 ==

== ENCOUNTER → 2024-12-03 08:40 | Outpatient (REF) | payer OTHER, SELFPAY | LOC: HWRAD 08:40 | PROVIDERS: ATTENDING PHYSICIAN Nuclear Medicine Nuclear Cardiology; FAMILY PHYSICIAN Physician Assistant | DX: I48.0 Paroxysmal atrial fibrillation (principal); Z79.899 Other long term (current) drug therapy | CPT/HCPCS: 71046 ==

== ENCOUNTER 2025-03-11 19:53 | Emergency (ER) | payer OTHER, SELFPAY ==
[2025-03-11 19:55] VITALS: BP 176/89
[2025-03-11 20:09] LABS: Hematocrit 36.4 % (37.0-47.0); Hemoglobin 12.3 g/dL (12.0-16.0); Mean Corp Hgb Conc. 33.8 g/dL (33.0-37.0); Mean Corpuscular Volume 99.5 fL (81.0-99.0); Nucleated Red Blood Cells % 0 %; Platelet Count 264 10^3/uL (130-400); Red Cell Dist. Width 13.3 % (11.5-14.5)
[2025-03-11 20:30] LABS: ALT (SGPT) 26 U/L (0-35); AST (SGOT) 32 U/L (14-36); Albumin 4.5 g/dl (3.5-5.0); Alkaline Phosphatase 67 U/L (38-126); Blood Urea Nitrogen 35 mg/dl (7-17); Calcium 9.3 mg/dl (8.4-10.2); Carbon Dioxide 26 mmol/L (22-30); Chloride 100 mmol/L (98-107); Glucose 107 mg/dl (70-99); Potassium 4.8 mmol/L (3.5-5.1); Sodium 132 mmol/L (135-145); Total Protein 7.6 g/dl (6.3-8.2); eGFR 48.94
--- NOTE | 2025-03-11 21:21 | ED.GENMED ---
History of Present Illness
General
Chief Complaint: Extremity Pain (non-traumatic)
Source: patient
Exam Limitations: none
Time Seen by Provider: 03/11/25 21:09
History of Present Illness
History of Present Illness:
See MDM
Past History
Past History
ED Past Medical History: Cancer (Breast CA) and HTN; Negative Asthma, Hypercholesterolemia or NIDDM
ED Past Surgical History: Gynecological (Lympectomy) and Orthopedic (Pelvic surgery due to fractures)
Social History
Tobacco: Non-smoker
Alcohol: Occasional
Personal:
Living: alone
Phy Exam
Physical Exam
Physical Exam:
See MDM
Course
Orders/Labs/Results
Orders:
Orders
03/11/25 19:59
US Periph Venous LOWER Ext LT Urgent
Comment:
Reason For Exam: inflammation with pain and swelling
03/11/25 20:04
Complete Blood Count/With Diff Urgent
Comprehensive Metabolic Panel Urgent
03/11/25 21:20
Cephalexin Monohydrate [Keflex] 500 mg PO NOW STA
Sulfamethox./Trimethoprim Ds [Bactrim Ds 800 mg/160 mg] 1 tablet PO NOW STA
Abnormal Lab Results
03/11/25
20:04
WBC 12.4 H 10^3/uL
(4.8-10.8)
RBC 3.66 L 10^6/uL
(4.20-5.40)
Hct 36.4 L %
(37.0-47.0)
MCV 99.5 H fL
(81.0-99.0)
MCH 33.6 H pg
(27.0-31.0)
Abs Immat Gran (auto) 0.1 H 10^3/uL
(0-0.05)
Absolute Neuts (auto) 10.4 H 10^3/uL
(1.4-6.5)
Absolute Lymphs (auto) 1.1 L 10^3/uL
(1.2-3.4)
Absolute Monos (auto) 0.8 H 10^3/uL
(0.1-0.6)
Neutrophils % 84.1 H %
(42.2-75.2)
Lymphocytes % 8.6 L %
(20.5-51.1)
Sodium 132 L mmol/L
(135-145)
BUN 35 H mg/dl
(7-17)
Creatinine 1.1 H mg/dL
(0.6-1.0)
Glucose 107 H mg/dl
(70-99)
03/11/25 20:04
03/11/25 20:04
Vital Signs
Initial and Last Documented VS:
Initial Vital Signs
Temp Pulse Resp BP Pulse Ox
99.1 F 80 16 176/89 97
03/11/25 19:55 03/11/25 19:55 03/11/25 19:55 03/11/25 19:55 03/11/25 19:55
Last Documented Vital Signs
Temp Pulse Resp BP Pulse Ox
99.1 F 74 16 153/67 97
03/11/25 19:55 03/11/25 21:27 03/11/25 21:27 03/11/25 21:27 03/11/25 21:27
MDM/Problems Addressed
Differential Diagnosis Includes:
Note:
CHIEF COMPLAINT(S)
Swelling in the leg and throbbing sensation.
HISTORY OF PRESENT ILLNESS
The patient is an 84-year-old female who presented with sudden swelling in the leg accompanied by a throbbing sensation. The onset of symptoms occurred unexpectedly while the patient was resting a few hours before presentation. The patient reports
that the affected area of the leg is warm to the touch, but there is no significant pain. Physical examination revealed redness and different shades of discoloration in the affected area. The differential diagnosis was conducted to rule out the
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 The redness and warmth may suggest an infection potentially from a hematoma caused by a previous unnoticed trauma, exacerbated by
the use of the anticoagulant apixaban (Eliquis). The patients white blood cell count was slightly elevated, suggesting inflammation or infection.
CHRONIC MEDICAL CONDITIONS SIGNIFICANTLY AFFECTING CARE
The patient is on apixaban (Eliquis), an anticoagulant.
PHYSICAL EXAM
General: Alert, no acute distress.
Skin: Erythema and tenderness to left anterior distal leg. Mild edema noted. Mild surrounding cellulitic changes noted. No palpable abscess. Distal extremity neurovascular intact
Head: Normocephalic, atraumatic
Neck: Appears supple, trachea midline.
Eyes, Ears, Nose, Mouth, and Throat: Oral mucosa moist.
Cardiovascular: No signs of cyanosis
Respiratory: Respirations are non-labored.
Abdomen: Non-distended
Musculoskeletal: No deformities
Neurological: No focal neurological deficit observed.
Psychiatric: Cooperative, appropriate mood and affect.
PLAN
- Initiate treatment with two different antibiotics to address the potential infection related to the hematoma.
- Recommend alternating cold compresses for the first three days to reduce swelling followed by heat application to promote healing.
- Monitor for any progression of redness or swelling beyond the knee or increasing symptoms which may warrant re-evaluation.
- The patient is advised to return if symptoms worsen.
DIFFERENTIAL DIAGNOSIS
The Differential Diagnosis includes, in no particular order and is not limited to:
- Bakers cyst
- Hematoma
- Cellulitis
- Deep vein thrombosis
- Superficial thrombophlebitis
- Venous insufficiency
- Arthritis-related swelling
- Gout
- Insect bite or allergic reaction
- Soft tissue injury
Disposition:
SUMMARY OF ENCOUNTER
The patient, an 84-year-old female, presented with sudden onset swelling and throbbing sensation in the left leg. Physical examination indicated signs of a hematoma with possible surrounding infection. The patient is on apixaban, and it is unclear
if the leg suffered any trauma. An ultrasound ruled out deep vein thrombosis (DVT) and showed good blood flow, not consistent with arterial or venous insufficiency. Due to erythema and tenderness, treatment for a presumed infected hematoma was
initiated with cephalexin and trimethoprim-sulfamethoxazole. The patient is well-appearing and nontoxic. Admission was offered but the patient preferred outpatient management, understanding the need for strict return precautions.
DISPOSITION
Discharge.
ASSESSMENT
Suspected infected hematoma in the left leg potentially exacerbated by anticoagulation therapy and possible unnoticed trauma.
PLAN
Initiate antibiotics cephalexin and trimethoprim-sulfamethoxazole to treat the presumed infection. Advise alternating cold compresses and heat application post-initial period. Monitor for progression of symptoms and instruct strict return
precautions in case of worsening.
INDEPENDENT REVIEW OF LABS AND INTERPRETATION OF TESTS
My independent review of the ultrasound indicates no deep vein thrombosis and good blood flow, inconsistent with arterial or venous obstruction.
PATIENT EDUCATION AND COUNSELING
Instructed the patient on signs of worsening to monitor such as increased redness or swelling beyond the knee and advised to apply cold compresses initially followed by heat.
FOLLOW-UP INSTRUCTIONS
Advised the patient to return immediately if symptoms worsen or do not improve with treatment.
MEDICATION RECONCILIATION
Cephalexin and trimethoprim-sulfamethoxazole, initiated for outpatient treatment.
MEDICAL DECISION MAKING
1. Number and Complexity of Problems Addressed: Chronic conditions affecting care include anticoagulation therapy with apixaban. Differential diagnosis considered includes Bakers cyst, hematoma, cellulitis, superficial thrombophlebitis, venous
insufficiency, arthritis-related swelling, gout, insect bite or allergic reaction, and soft tissue injury.
2. Data:
- Category 1: Ultrasound reviewed, indicating no DVT and consistent blood flow.
- Category 2: Discussion of management included offering admission versus outpatient treatment.
3. Risk: Prescription medication was prescribed. Consideration of Admission/Observation: Escalation of care including admission/observation was considered given the complexity and risk of the patients presenting complaint. However, ultimately I feel
the patient is safe for outpatient management with close follow-up. Reasoning: Work-up reassuring, patients symptoms well controlled upon reevaluation, vitals are stable, and the patient is agreeable with discharge and reliable for follow-up.
DIAGNOSIS
- Infected hematoma, left leg, ICD-10: L03.116.
*Pulse Oximetry
SaO2: 97
Oxygen Mode of Delivery: Room air
Patient hypoxic: no
*Critical Care Note
Total Time (30-74mins, 75-104mins- exclusive of procedures): Not Applicable
ED Attending Note
-
Portions of this chart may have been created with voice recognition software.� Occasional wrong word or��sound alike� substitutions may have occurred due to the inherent limitations of voice recognition software.
Discharge Plan
Departure
Patient Disposition: Home (Routine Discharge)
Date of Disposition: 03/11/25
Time of Disposition: 21:25
Patient with high blood pressure during this ER visit?: Yes
Discharge Problem:
Infected hematoma
Prescriptions:
New
sulfamethoxazole-trimethoprim [Bactrim DS] 800-160 mg tablet
1 tab PO BID 7 Days Qty: 14 0RF
cephalexin 500 mg capsule
500 mg PO BID 7 Days Qty: 14 0RF
No Action
Eliquis 2.5 mg Tablet
2.5 mg PO BID Qty: 60 0RF
Jardiance 10 mg Tablet
10 mg PO DAILY Qty: 30 0RF
furosemide 20 mg Tablet
20 mg PO DAILY Qty: 30 0RF
metoprolol succinate 25 mg Tablet Extended Release 24 Hr
25 mg PO BID Qty: 60 0RF
amiodarone [Pacerone] 200 mg Tablet
200 mg PO DAILY Qty: 30 5RF
Activity Restrictions/Additional Instructions:
Watch for worsening signs of infection: fever over 100.5', increasing pain, red streaks around wound, swelling, or increasing drainage of pus. If any of these happen, return to ED promptly. Make sure that you take all your antibiotics as directed
and finish your prescription even if you feel better before the bottle is empty
Discharge Date and Time
Print Language: IRISH
[2025-03-11 21:27] VITALS: BP 153/67
[2025-03-11] MEDS: KEFLEX 500 MG PO (21:27)
[2025-03-11] MEDS: BACTRIM DS 800 MG/160 MG 1 TABLET PO (21:27)
== END 2025-03-11 21:42 | disposition home or self-care (01) ==
LOC: EMR 19:53
PROVIDERS: EMERGENCY PHYSICIAN Student in an Organized Health Care Education/Training Program; FAMILY PHYSICIAN Physician Assistant
DX: L08.89 Other specified local infections of the skin and subcutaneous tissue (principal); S80.12XA Contusion of left lower leg, initial encounter; X58.XXXA Exposure to other specified factors, initial encounter; I10 Essential (primary) hypertension; M19.90 Unspecified osteoarthritis, unspecified site; Z79.01 Long term (current) use of anticoagulants; Z85.3 Personal history of malignant neoplasm of breast
CPT/HCPCS: 99284; 80053; 85025; 93971